=== PATIENT | female | born 1950 | race Caucasian/White ===

== ENCOUNTER 2022-05-11 13:14 | Inpatient (IN) | payer MEDICARE ==
[~2022-05-11] VITALS: Ht 152.4 cm; Wt 80.5 kg
[2022-05-11 20:00] VITALS: BP 137/71
[2022-05-11 20:50] VITALS: BP 137/71
[2022-05-11] MEDS ORDERED: DEXTROSE 50% 50ML SYRINGE IV PRN (22:05)
[2022-05-11] MEDS ORDERED: NS 1,000 ML IV SCH (22:05)
[2022-05-11] MEDS ORDERED: GLUCAGON INJ 1MG VIAL SC PRN (22:05)
[2022-05-11] MEDS ORDERED: GLUCOSE 4GM CHEW TABLET PO PRN (22:05)
[2022-05-11] MEDS ORDERED: AMLO1TAB25 PO (22:53)
[2022-05-11] MEDS ORDERED: PRED20TA PO (22:53)
[2022-05-11] MEDS ORDERED: THERTAB52 PO (22:53)
[2022-05-11] MEDS ORDERED: ROSU40TA4 PO (22:53)
[2022-05-11] MEDS ORDERED: ASPI81TA26 PO (22:53)
[2022-05-11] MEDS ORDERED: TIMO0.5S29 OU (22:53)
[2022-05-11] MEDS ORDERED: D-50CAP PO (22:53)
[2022-05-11] MEDS ORDERED: VORI200T PO (22:53)
[2022-05-11] MEDS ORDERED: METF500T13 PO (22:53)
[2022-05-11] MEDS ORDERED: FURO20TA2 PO (22:53)
[2022-05-11] MEDS ORDERED: LISI5TAB11 PO (22:53)
[2022-05-11] MEDS ORDERED: CARV6.25 PO (22:53)
[2022-05-11] MEDS ORDERED: HOME MED LIST COMPLETE! XX SCH (22:55)
[2022-05-11] MEDS: PERCOCET 5MG/325MG TAB PO PRN (23:38)
[2022-05-12] VITALS (7 sets, daily range): BP systolic 123–133; BP diastolic 58–74
[2022-05-12] MEDS ORDERED: UNRESOLVED CLARIFICATION ENTRY XX SCH (00:01)
[2022-05-12 00:23] LABS: OSMOLALITY URINE 426 MOSM/KG (50-1400)
[2022-05-12 00:25] LABS: APPEARANCE, URINE HAZY (CLEAR); BACTERIA, URINE AUTO 1+ (NEGATIVE); BILIRUBIN, URINE AUTO NEGATIVE (NEGATIVE); BLOOD, URINE BLOOD 1+ (NEGATIVE); COLOR, URINE YELLOW (YELLOW); GLUCOSE, URINE (UA) AUTO NEGATIVE (NEGATIVE); KETONE, URINE AUTO NEGATIVE (NEGATIVE); LEUKOCYTE ESTERASE, URINE AUTO NEGATIVE (NEGATIVE); MUCUS, URINE SMALL (NEGATIVE); NITRITE, URINE AUTO NEGATIVE (NEGATIVE); PROTEIN, URINE AUTO 2+ mg/dL (NEGATIVE); RBC, URINE AUTO 2 /HPF (0-3); SPECIFIC GRAVITY URINE AUTO 1.012 (1.002-1.035); SQUAMOUS EPITHELIAL CELL UR AU 1 /HPF (0-6); UROBILINOGEN, URINE AUTO 0.2 mg/dL (0.0-2.0); WBC, URINE AUTO 5 /HPF (0-3)
[2022-05-12 00:31] LABS: SODIUM,RANDOM URINE 108 MMOL/L
[2022-05-12 00:48] LABS: TOTAL PROTEIN,RANDOM URINE 134.9 MG/DL (0.0-14.0)
[2022-05-12 01:33] LABS: HEMATOCRIT 25.9 % (36.0-47.0); HEMOGLOBIN 8.4 g/dl (12.0-15.5); MEAN CORPUSCULAR HEMOGLOBIN 31.2 pg (27.0-33.0); MEAN CORPUSCULAR HGB CONC 32.4 g/dl (32.0-36.5); MEAN CORPUSCULAR VOLUME 96.3 fl (80.0-96.0); PLATELET COUNT, AUTOMATED 292 10^3/uL (150-450); RED BLOOD COUNT 2.69 10^6/uL (4.00-5.40)
[2022-05-12 01:56] LABS: CALCIUM LEVEL 8.5 MG/DL (8.3-10.6); CREATININE FOR GFR 1.42 MG/DL (0.55-1.30); GLOMERULAR FILTRATION RATE 38.8 (>39); POTASSIUM SERUM 3.6 MMOL/L (3.5-5.1)
[2022-05-12] MEDS: PIPERACILLIN/TAZOBACTAM SOD 3.375 GM in D5W MINI-BAG PLUS 50 ML IV SCH ×4 (02:07→17:10)
[2022-05-12] MEDS: CARVedilol 6.25 MG TAB PO SCH ×3 (02:08→20:33)
[2022-05-12 02:32] LABS: INR 1.02; PROTHROMBIN TIME 13.6 SECONDS (12.5-14.5)
[2022-05-12 02:33] LABS: PARTIAL THROMBOPLASTIN TIME 29.5 SECONDS (24.8-34.2)
[2022-05-12] MEDS: TIMOLOL MALEATE 0.5% OPHTH SOLN 5 ML OU SCH ×3 (02:46→20:23)
[2022-05-12] MEDS: VORICONAZOLE 200MG TABLET (VFEND) PO SCH ×3 (02:47→20:23)
[2022-05-12] MEDS ORDERED: VANCOMYCIN HCL 750 MG, VIAL MATE ADAPTER 1 EACH in D5W 250 ML IV ONE (03:00)
[2022-05-12] MEDS: ACETAMINOPHEN TAB 650MG DOSE (2X325MG) PO PRN (04:18)
[2022-05-12] MEDS: PERCOCET 5MG/325MG TAB PO PRN ×2 (05:48→20:34)
[2022-05-12 06:04] LABS: HEMATOCRIT 25.8 % (36.0-47.0); HEMOGLOBIN 8.2 g/dl (12.0-15.5); MEAN CORPUSCULAR HEMOGLOBIN 30.9 pg (27.0-33.0); MEAN CORPUSCULAR HGB CONC 31.8 g/dl (32.0-36.5); MEAN CORPUSCULAR VOLUME 97.4 fl (80.0-96.0); PLATELET COUNT, AUTOMATED 274 10^3/uL (150-450); RED BLOOD COUNT 2.65 10^6/uL (4.00-5.40); WHITE BLOOD COUNT 12.6 10^3/uL (4.0-10.0)
[2022-05-12 06:31] LABS: CALCIUM LEVEL 8.4 MG/DL (8.3-10.6); CREATININE FOR GFR 1.34 MG/DL (0.55-1.30); GLOMERULAR FILTRATION RATE 41.5 (>39); POTASSIUM SERUM 3.5 MMOL/L (3.5-5.1)
[2022-05-12] MEDS ORDERED: FUROSEMIDE 20 MG TAB PO SCH (09:00)
[2022-05-12] MEDS ORDERED: lisinopriL 5 MG TAB PO SCH (09:00)
[2022-05-12 09:28] LABS: HEMOGLOBIN A1c 6.1 % (4.0-6.0)
[2022-05-12] MEDS: ASPIRIN 81MG ENTERIC TABLET PO SCH (09:43)
[2022-05-12] MEDS: ROSUVASTATIN 10 MG TAB (CRESTOR) PO SCH (09:44)
[2022-05-12] MEDS: INSULIN LISPRO (NovoLOG) PER UNIT SC SCH ×4 (09:46→20:23)
[2022-05-12] MEDS: VANCOMYCIN HCL 1,000 MG, VIAL MATE ADAPTER 1 EACH in NS 250 ML IV SCH (20:23)
[2022-05-13] VITALS (9 sets, daily range): BP systolic 110–139; BP diastolic 52–59
[2022-05-13] MEDS: PIPERACILLIN/TAZOBACTAM SOD 3.375 GM in D5W MINI-BAG PLUS 50 ML IV SCH ×4 (00:02→18:23)
[2022-05-13] MEDS ORDERED: NS 0.45% 1,000 ML IV SCH (06:00)
[2022-05-13 06:04] LABS: HEMATOCRIT 25.2 % (36.0-47.0); HEMOGLOBIN 8.2 g/dl (12.0-15.5); MEAN CORPUSCULAR HEMOGLOBIN 31.3 pg (27.0-33.0); MEAN CORPUSCULAR HGB CONC 32.5 g/dl (32.0-36.5); MEAN CORPUSCULAR VOLUME 96.2 fl (80.0-96.0); PLATELET COUNT, AUTOMATED 290 10^3/uL (150-450); RED BLOOD COUNT 2.62 10^6/uL (4.00-5.40); WHITE BLOOD COUNT 14.6 10^3/uL (4.0-10.0)
[2022-05-13 06:36] LABS: C REACTIVE PROTEIN QUANTITATIV 4.6 MG/DL (<1.0)
[2022-05-13 06:37] LABS: CALCIUM LEVEL 8.4 MG/DL (8.3-10.6); CREATININE FOR GFR 1.37 MG/DL (0.55-1.30); GLOMERULAR FILTRATION RATE 40.5 (>39); POTASSIUM SERUM 3.5 MMOL/L (3.5-5.1)
[2022-05-13] MEDS ORDERED: fentaNYL 100 MCG/2 ML INJECTION As Ordered ONE ×2 (07:26→09:44)
[2022-05-13] MEDS ORDERED: ISOVUE-300 61% 100ML VIAL As Ordered ONE ×3 (07:27→09:57)
[2022-05-13] MEDS ORDERED: HEPARIN 1,000UNITS/ML 10ML VIAL (FOR RADIOLOGY & DIALYSIS ONLY) As Ordered ONE (07:27)
[2022-05-13] MEDS ORDERED: LIDOCAINE 1% MDV 20ML VIAL As Ordered ONE (07:27)
[2022-05-13] MEDS ORDERED: MIDAZOLAM INJ 2MG/2ML VIAL As Ordered ONE (07:27)
[2022-05-13] MEDS: INSULIN LISPRO (NovoLOG) PER UNIT SC SCH ×4 (07:30→21:00)
[2022-05-13] MEDS ORDERED: NITROGLYCERIN IN D5W 25MG/250ML (100MCG/ML) As Ordered ONE (09:35)
[2022-05-13] MEDS ORDERED: HYDROmorphone HCL 2MG/ML 1ML VIAL As Ordered ONE (09:59)
[2022-05-13] MEDS ORDERED: PAPAVERINE HCL 60MG 2ML VIAL (30MG/ML) INJ ONE (10:30)
[2022-05-13] MEDS ORDERED: PIPERACILLIN/TAZOBACTAM SOD 2.25 GM in D5W MINI-BAG PLUS 50 ML IV SCH (12:00)
[2022-05-13] MEDS: VORICONAZOLE 200MG TABLET (VFEND) PO SCH ×2 (12:48→21:47)
[2022-05-13] MEDS: ROSUVASTATIN 10 MG TAB (CRESTOR) PO SCH (12:48)
[2022-05-13] MEDS: CARVedilol 6.25 MG TAB PO SCH ×2 (12:49→21:46)
[2022-05-13] MEDS: TIMOLOL MALEATE 0.5% OPHTH SOLN 5 ML OU SCH ×2 (12:49→21:47)
[2022-05-13] MEDS: ASPIRIN 81MG ENTERIC TABLET PO SCH (13:07)
[2022-05-13] MEDS ORDERED: ONDANSETRON 4MG 2ML VIAL IV PRN (13:10)
[2022-05-13] MEDS ORDERED: TICAGRELOR 90 MG TABLET (BRILINTA) PO ONE (14:00)
[2022-05-13] MEDS: PERCOCET 5MG/325MG TAB PO PRN (19:54)
[2022-05-13] MEDS ORDERED: TICAGRELOR 90 MG TABLET (BRILINTA) PO SCH (21:00)
[2022-05-13] MEDS: VANCOMYCIN HCL 1,000 MG, VIAL MATE ADAPTER 1 EACH in NS 250 ML IV SCH (21:47)
[2022-05-13] MEDS: ACETAMINOPHEN TAB 650MG DOSE (2X325MG) PO PRN (22:47)
[2022-05-14] VITALS (11 sets, daily range): BP systolic 109–148; BP diastolic 37–60
[2022-05-14] MEDS: PIPERACILLIN/TAZOBACTAM SOD 3.375 GM in D5W MINI-BAG PLUS 50 ML IV SCH ×4 (00:40→17:20)
[2022-05-14 06:08] LABS: HEMATOCRIT 22.8 % (36.0-47.0); HEMOGLOBIN 7.5 g/dl (12.0-15.5); MEAN CORPUSCULAR HEMOGLOBIN 31.4 pg (27.0-33.0); MEAN CORPUSCULAR HGB CONC 32.9 g/dl (32.0-36.5); MEAN CORPUSCULAR VOLUME 95.4 fl (80.0-96.0); PLATELET COUNT, AUTOMATED 267 10^3/uL (150-450); RED BLOOD COUNT 2.39 10^6/uL (4.00-5.40); WHITE BLOOD COUNT 14.6 10^3/uL (4.0-10.0)
[2022-05-14 06:36] LABS: C REACTIVE PROTEIN QUANTITATIV 5.6 MG/DL (<1.0); CALCIUM LEVEL 8.2 MG/DL (8.3-10.6); CREATININE FOR GFR 1.31 MG/DL (0.55-1.30); GLOMERULAR FILTRATION RATE 42.6 (>39); POTASSIUM SERUM 3.1 MMOL/L (3.5-5.1)
[2022-05-14] MEDS: INSULIN LISPRO (NovoLOG) PER UNIT SC SCH ×4 (07:30→21:00)
[2022-05-14] MEDS: TIMOLOL MALEATE 0.5% OPHTH SOLN 5 ML OU SCH ×2 (08:03→21:20)
[2022-05-14] MEDS: POTASSIUM CHLORIDE 10MEQ SR TABLET PO SCH ×3 (08:04→21:18)
[2022-05-14] MEDS: ROSUVASTATIN 10 MG TAB (CRESTOR) PO SCH (08:05)
[2022-05-14] MEDS: CARVedilol 6.25 MG TAB PO SCH ×2 (08:05→21:17)
[2022-05-14] MEDS: PERCOCET 5MG/325MG TAB PO PRN ×2 (08:06→17:19)
[2022-05-14] MEDS: VORICONAZOLE 200MG TABLET (VFEND) PO SCH ×2 (08:07→21:18)
[2022-05-14] MEDS: ASPIRIN 81MG ENTERIC TABLET PO SCH (09:57)
[2022-05-14] MEDS ORDERED: SODIUM CHLORIDE NASAL 0.65% SPRAY BTL (OCEAN) PRN (11:30)
[2022-05-14] MEDS: CLOPIDOGREL 75 MG TAB PO SCH (12:04)
[2022-05-14] MEDS ORDERED: LIDOCAINE 2% 100MG/5ML SDV (FOR ANES.) As Ordered ONE (12:09)
[2022-05-14] MEDS ORDERED: ONDANSETRON 4MG 2ML VIAL As Ordered ONE (12:09)
[2022-05-14] MEDS ORDERED: fentaNYL 100 MCG/2 ML INJECTION As Ordered ONE (12:09)
[2022-05-14] MEDS ORDERED: propofoL 200 MG/20 ML VIAL As Ordered ONE (12:09)
[2022-05-14] MEDS ORDERED: MIDAZOLAM INJ 2MG/2ML VIAL As Ordered ONE (12:09)
[2022-05-14] MEDS ORDERED: BUPIVACAINE HCL 0.5% 30ML VIAL As Ordered ONE (12:39)
[2022-05-14] MEDS ORDERED: LIDOCAINE 1% SDV 30ML VIAL As Ordered ONE (12:39)
[2022-05-14] MEDS ORDERED: ZOSYN 3.375GM VIAL As Ordered ONE (12:59)
[2022-05-14] MEDS ORDERED: fentaNYL 100 MCG/2 ML INJECTION IV PRN (13:35)
[2022-05-14] MEDS ORDERED: ONDANSETRON 4MG 2ML VIAL IV PRN (13:35)
[2022-05-14] MEDS ORDERED: LR 1,000 ML IV SCH (13:35)
[2022-05-14] MEDS ORDERED: oxyCODONE 5MG TAB PO PRN (13:35)
[2022-05-14] MEDS ORDERED: MORPHINE 2 MG/ML 1ML VIAL IV ONE (17:15)
[2022-05-14] MEDS ORDERED: MORPHINE 2 MG/ML 1ML VIAL IV PRN ×2 (17:30→18:00)
[2022-05-14 18:08] LABS: HEMATOCRIT 23.7 % (36.0-47.0); HEMOGLOBIN 7.6 g/dl (12.0-15.5)
[2022-05-14] MEDS: ACETAMINOPHEN TAB 650MG DOSE (2X325MG) PO PRN (18:21)
[2022-05-14] MEDS ORDERED: TICAGRELOR 90 MG TABLET (BRILINTA) PO SCH (21:00)
[2022-05-14] MEDS ORDERED: CLOPIDOGREL 75 MG TAB PO SCH (21:00)
[2022-05-14] MEDS: VANCOMYCIN HCL 1,000 MG, VIAL MATE ADAPTER 1 EACH in NS 250 ML IV SCH (21:18)
[2022-05-15] MEDS: PIPERACILLIN/TAZOBACTAM SOD 3.375 GM in D5W MINI-BAG PLUS 50 ML IV SCH ×2 (00:11→05:51)
[2022-05-15] MEDS: ACETAMINOPHEN TAB 650MG DOSE (2X325MG) PO PRN (00:30)
[2022-05-15 02:10] VITALS: BP 122/48
[2022-05-15 06:00] VITALS: BP 122/52
[2022-05-15 06:35] LABS: HEMATOCRIT 22.3 % (36.0-47.0); HEMOGLOBIN 7.1 g/dl (12.0-15.5); MEAN CORPUSCULAR HEMOGLOBIN 31.3 pg (27.0-33.0); MEAN CORPUSCULAR HGB CONC 31.8 g/dl (32.0-36.5); MEAN CORPUSCULAR VOLUME 98.2 fl (80.0-96.0); PLATELET COUNT, AUTOMATED 276 10^3/uL (150-450); RED BLOOD COUNT 2.27 10^6/uL (4.00-5.40); WHITE BLOOD COUNT 13.3 10^3/uL (4.0-10.0)
[2022-05-15] MEDS: PERCOCET 5MG/325MG TAB PO PRN ×2 (06:55→12:35)
[2022-05-15 07:00] LABS: C REACTIVE PROTEIN QUANTITATIV 6.9 MG/DL (<1.0); CALCIUM LEVEL 8.4 MG/DL (8.3-10.6); CREATININE FOR GFR 1.35 MG/DL (0.55-1.30); GLOMERULAR FILTRATION RATE 41.2 (>39); POTASSIUM SERUM 4.1 MMOL/L (3.5-5.1)
[2022-05-15 08:00] VITALS: BP 125/51
[2022-05-15] MEDS ORDERED: CEFEPIME HCL 2 GM in D5W MINI-BAG PLUS 50 ML IV SCH (08:00)
[2022-05-15] MEDS: VORICONAZOLE 200MG TABLET (VFEND) PO SCH (09:41)
[2022-05-15] MEDS: CLOPIDOGREL 75 MG TAB PO SCH (09:41)
[2022-05-15 09:42] VITALS: BP 125/51
[2022-05-15] MEDS: CARVedilol 6.25 MG TAB PO SCH (09:43)
[2022-05-15] MEDS: ASPIRIN 81MG ENTERIC TABLET PO SCH (09:43)
[2022-05-15] MEDS: ROSUVASTATIN 10 MG TAB (CRESTOR) PO SCH (09:43)
[2022-05-15] MEDS: TIMOLOL MALEATE 0.5% OPHTH SOLN 5 ML OU SCH (09:45)
[2022-05-15] MEDS: INSULIN LISPRO (NovoLOG) PER UNIT SC SCH ×2 (09:45→14:14)
[2022-05-15 14:00] VITALS: BP 125/51
[2022-05-15] MEDS ORDERED: HEPARIN SOD (PORCINE) 5000UNITS/ML 1ML VIAL/SYRINGE SQ SCH (14:00)
[2022-05-15 16:09] LABS: CLOSTRIDIUM DIFFICILE PCR NEGATIVE (NEGATIVE)
== END 2022-05-15 16:21 | DRG 252 ==
LOC: M PCU 20:30 → M MSPAV 05-12 21:52
PROVIDERS: ADMIT Internal Medicine; ATTEND Student in an Organized Health Care Education/Training Program
PROC: B246ZZZ Ultrasonography of Right and Left Heart (ICD-10-PCS; 2022-05-12)
PROC: 047T341 Dilation of Right Peroneal Artery with Drug-eluting Intraluminal Device, using Drug-Coated Balloon, Percutaneous Approach (ICD-10-PCS; 2022-05-13)
PROC: 04FP3Z0 Fragmentation of Right Anterior Tibial Artery, Percutaneous Approach, Ultrasonic (ICD-10-PCS; 2022-05-13)
PROC: 04FM3Z0 Fragmentation of Right Popliteal Artery, Percutaneous Approach, Ultrasonic (ICD-10-PCS; 2022-05-13)
PROC: 04FK3Z0 Fragmentation of Right Femoral Artery, Percutaneous Approach, Ultrasonic (ICD-10-PCS; 2022-05-13)
PROC: 047M3ZZ Dilation of Right Popliteal Artery, Percutaneous Approach (ICD-10-PCS; 2022-05-13)
PROC: 047K341 Dilation of Right Femoral Artery with Drug-eluting Intraluminal Device, using Drug-Coated Balloon, Percutaneous Approach (ICD-10-PCS; principal; 2022-05-13 08:00)
PROC: 0Y6P0Z0 Detachment at Right 1st Toe, Complete, Open Approach (ICD-10-PCS; 2022-05-14)
DX: E11.52 Type 2 diabetes mellitus with diabetic peripheral angiopathy with gangrene (principal); J98.51 Mediastinitis; M86.171 Other acute osteomyelitis, right ankle and foot; I70.261 Atherosclerosis of native arteries of extremities with gangrene, right leg; K52.1 Toxic gastroenteritis and colitis; B49 Unspecified mycosis; L97.518 Non-pressure chronic ulcer of other part of right foot with other specified severity; E11.69 Type 2 diabetes mellitus with other specified complication; I12.9 Hypertensive chronic kidney disease with stage 1 through stage 4 chronic kidney disease, or unspecified chronic kidney disease; I70.235 Atherosclerosis of native arteries of right leg with ulceration of other part of foot; E11.621 Type 2 diabetes mellitus with foot ulcer; E78.5 Hyperlipidemia, unspecified; E11.22 Type 2 diabetes mellitus with diabetic chronic kidney disease; E87.6 Hypokalemia; N18.9 Chronic kidney disease, unspecified; R04.0 Epistaxis; I25.10 Atherosclerotic heart disease of native coronary artery without angina pectoris; H40.9 Unspecified glaucoma; T36.95XA Adverse effect of unspecified systemic antibiotic, initial encounter; Z79.82 Long term (current) use of aspirin; Z79.84 Long term (current) use of oral hypoglycemic drugs; Z79.899 Other long term (current) drug therapy; Z88.1 Allergy status to other antibiotic agents; Z98.41 Cataract extraction status, right eye; Z98.42 Cataract extraction status, left eye; Z85.3 Personal history of malignant neoplasm of breast; Z92.3 Personal history of irradiation; Z87.891 Personal history of nicotine dependence; Z95.1 Presence of aortocoronary bypass graft

== ENCOUNTER 2022-05-15 15:58 | Inpatient (IN) | payer MEDICARE ==
[~2022-05-15] VITALS: Ht 152.4 cm; Wt 73.2 kg
[~2022-05-15 15:58] MED LIST: AMLO1TAB25 PO; ASPI81TA26 PO; CARV6.25 PO; D-50CAP PO; FURO20TA2 PO; LISI5TAB11 PO; METF500T13 PO; PRED20TA PO; ROSU40TA4 PO; THERTAB52 PO; TIMO0.5S20 OU; VORI200T PO
[2022-05-15 16:00] VITALS: BP 134/62
[2022-05-15] MEDS ORDERED: MIRALAX *UNIT DOSE* 17GM PACKET PO PRN (16:55)
[2022-05-15] MEDS ORDERED: ONDANSETRON 4MG TAB PO PRN (16:55)
[2022-05-15] MEDS ORDERED: GLUCOSE 4GM CHEW TABLET PO PRN (16:55)
[2022-05-15] MEDS ORDERED: GLUCAGON INJ 1MG VIAL SC PRN (16:55)
[2022-05-15] MEDS ORDERED: DEXTROSE 50% 50ML SYRINGE IV PRN (16:55)
[2022-05-15] MEDS: INSULIN LISPRO (NovoLOG) PER UNIT SC SCH ×2 (17:30→21:00)
[2022-05-15] MEDS ORDERED: HOME MED LIST COMPLETE! XX SCH (17:35)
[2022-05-15] MEDS: LACTOBACILLUS ACIDOPHILUS CAP (BACID) PO SCH (18:51)
[2022-05-15] MEDS: oxyCODONE 5MG TAB PO PRN (18:54)
[2022-05-15] MEDS: CEFEPIME HCL 2 GM in D5W MINI-BAG PLUS 50 ML IV SCH (19:57)
[2022-05-15 20:00] VITALS: BP 141/65
[2022-05-15] MEDS: ACETAMINOPHEN 500 MG TAB PO SCH (20:52)
[2022-05-15] MEDS: PANTOPRAZOLE 40MG TAB (PROTONIX) PO SCH (20:52)
[2022-05-15] MEDS: VORICONAZOLE 200MG TABLET (VFEND) PO SCH (20:52)
[2022-05-15] MEDS: CARVedilol 6.25 MG TAB PO SCH (20:52)
[2022-05-15] MEDS: REMEDY PHYTOPLEX Z-GUARD PASTE 113GM TUBE (FROM STOREROOM PRODUCT) TOP SCH (20:56)
[2022-05-15] MEDS ORDERED: VANCOMYCIN HCL 1,000 MG, VIAL MATE ADAPTER 1 EACH in D5W 250 ML IV SCH (21:00)
[2022-05-15] MEDS: TIMOLOL MALEATE 0.5% OPHTH SOLN 5 ML OU SCH (21:01)
[2022-05-16] VITALS (7 sets, daily range): BP systolic 117–161; BP diastolic 56–72
[2022-05-16 06:45] LABS: BASO # 0.1 10^3/uL (0.0-0.2); BASO % 0.4 % (0.0-1.0); EOS # 0.2 10^3/uL (0.0-0.5); EOS % 1.1 % (0.0-3.0); HEMATOCRIT 21.8 % (36.0-47.0); LYMPH # 1.3 10^3/uL (1.5-5.0); LYMPH % 8.2 % (24.0-44.0); MEAN CORPUSCULAR HEMOGLOBIN 31.3 pg (27.0-33.0); MEAN CORPUSCULAR HGB CONC 32.1 g/dl (32.0-36.5); MEAN CORPUSCULAR VOLUME 97.3 fl (80.0-96.0); MONO # 0.9 10^3/uL (0.0-0.8); MONO % 5.8 % (2.0-8.0); NEUTROPHILS # 12.8 10^3/uL (1.5-8.5); NEUTROPHILS % 83.8 % (36.0-66.0); PLATELET COUNT, AUTOMATED 284 10^3/uL (150-450); RED BLOOD COUNT 2.24 10^6/uL (4.00-5.40); WHITE BLOOD COUNT 15.3 10^3/uL (4.0-10.0)
[2022-05-16 07:10] LABS: ALBUMIN 2.5 G/DL (3.2-5.2); BILIRUBIN,TOTAL 0.5 MG/DL (0.3-1.2); CALCIUM LEVEL 8.5 MG/DL (8.3-10.6); CREATININE FOR GFR 1.42 MG/DL (0.55-1.30); GLOMERULAR FILTRATION RATE 38.8 (>39); POTASSIUM SERUM 3.7 MMOL/L (3.5-5.1); TOTAL PROTEIN 6.3 G/DL (5.7-8.2)
[2022-05-16] MEDS: REMEDY PHYTOPLEX Z-GUARD PASTE 113GM TUBE (FROM STOREROOM PRODUCT) TOP SCH ×3 (09:00→20:21)
[2022-05-16] MEDS: CEFEPIME HCL 2 GM in D5W MINI-BAG PLUS 50 ML IV SCH (09:23)
[2022-05-16] MEDS: ASPIRIN 81MG ENTERIC TABLET PO SCH (09:24)
[2022-05-16] MEDS: CLOPIDOGREL 75 MG TAB PO SCH (09:24)
[2022-05-16] MEDS: PANTOPRAZOLE 40MG TAB (PROTONIX) PO SCH ×2 (09:24→20:20)
[2022-05-16] MEDS: LACTOBACILLUS ACIDOPHILUS CAP (BACID) PO SCH ×2 (09:24→17:47)
[2022-05-16] MEDS: ROSUVASTATIN 10 MG TAB (CRESTOR) PO SCH (09:24)
[2022-05-16] MEDS: ACETAMINOPHEN 500 MG TAB PO SCH ×3 (09:25→20:19)
[2022-05-16] MEDS: VORICONAZOLE 200MG TABLET (VFEND) PO SCH ×2 (09:25→20:19)
[2022-05-16] MEDS: CARVedilol 6.25 MG TAB PO SCH ×2 (09:26→20:20)
[2022-05-16] MEDS: TIMOLOL MALEATE 0.5% OPHTH SOLN 5 ML OU SCH ×2 (09:27→20:21)
[2022-05-16] MEDS: INSULIN LISPRO (NovoLOG) PER UNIT SC SCH ×4 (09:27→20:20)
[2022-05-16] MEDS: POTASSIUM CHLORIDE 10MEQ SR TABLET PO SCH (09:29)
[2022-05-16] MEDS ORDERED: LOPERAMIDE 2 MG CAPLET PO PRN (10:55)
[2022-05-16] MEDS: oxyCODONE 5MG TAB PO PRN (12:26)
[2022-05-16] MEDS: FUROSEMIDE 20 MG TAB PO SCH (13:27)
[2022-05-16] MEDS: PIPERACILLIN/TAZOBACTAM SOD 3.375 GM in D5W MINI-BAG PLUS 50 ML IV SCH ×2 (17:48→20:19)
[2022-05-16 19:59] LABS: BASO % 0.2 % (0.0-1.0); EOS # 0.2 10^3/uL (0.0-0.5); EOS % 1.4 % (0.0-3.0); HEMATOCRIT 24.6 % (36.0-47.0); HEMOGLOBIN 8.3 g/dl (12.0-15.5); LYMPH # 1.3 10^3/uL (1.5-5.0); LYMPH % 10.1 % (24.0-44.0); MEAN CORPUSCULAR HEMOGLOBIN 31.8 pg (27.0-33.0); MEAN CORPUSCULAR HGB CONC 33.7 g/dl (32.0-36.5); MEAN CORPUSCULAR VOLUME 94.3 fl (80.0-96.0); MONO # 0.9 10^3/uL (0.0-0.8); MONO % 7.3 % (2.0-8.0); NEUTROPHILS # 10.1 10^3/uL (1.5-8.5); NEUTROPHILS % 80.3 % (36.0-66.0); PLATELET COUNT, AUTOMATED 272 10^3/uL (150-450); RED BLOOD COUNT 2.61 10^6/uL (4.00-5.40); WHITE BLOOD COUNT 12.6 10^3/uL (4.0-10.0)
[2022-05-17] MEDS: PIPERACILLIN/TAZOBACTAM SOD 3.375 GM in D5W MINI-BAG PLUS 50 ML IV SCH ×4 (02:06→21:22)
[2022-05-17 06:00] VITALS: BP 128/59
[2022-05-17 07:01] LABS: BASO # 0.1 10^3/uL (0.0-0.2); BASO % 0.4 % (0.0-1.0); EOS # 0.2 10^3/uL (0.0-0.5); EOS % 1.8 % (0.0-3.0); HEMATOCRIT 24.1 % (36.0-47.0); HEMOGLOBIN 7.8 g/dl (12.0-15.5); LYMPH # 1.3 10^3/uL (1.5-5.0); LYMPH % 11.3 % (24.0-44.0); MEAN CORPUSCULAR HEMOGLOBIN 30.6 pg (27.0-33.0); MEAN CORPUSCULAR HGB CONC 32.4 g/dl (32.0-36.5); MEAN CORPUSCULAR VOLUME 94.5 fl (80.0-96.0); MONO # 0.9 10^3/uL (0.0-0.8); MONO % 7.9 % (2.0-8.0); NEUTROPHILS % 77.8 % (36.0-66.0); PLATELET COUNT, AUTOMATED 266 10^3/uL (150-450); RED BLOOD COUNT 2.55 10^6/uL (4.00-5.40); WHITE BLOOD COUNT 11.6 10^3/uL (4.0-10.0)
[2022-05-17] MEDS: INSULIN LISPRO (NovoLOG) PER UNIT SC SCH ×4 (08:11→21:00)
[2022-05-17] MEDS: ROSUVASTATIN 10 MG TAB (CRESTOR) PO SCH (08:12)
[2022-05-17] MEDS: ASPIRIN 81MG ENTERIC TABLET PO SCH (08:12)
[2022-05-17] MEDS: ACETAMINOPHEN 500 MG TAB PO SCH ×3 (08:13→21:22)
[2022-05-17] MEDS: POTASSIUM CHLORIDE 10MEQ SR TABLET PO SCH (08:13)
[2022-05-17] MEDS: LACTOBACILLUS ACIDOPHILUS CAP (BACID) PO SCH ×2 (08:14→17:01)
[2022-05-17] MEDS: PANTOPRAZOLE 40MG TAB (PROTONIX) PO SCH ×2 (08:14→21:21)
[2022-05-17] MEDS: VORICONAZOLE 200MG TABLET (VFEND) PO SCH ×2 (08:14→21:22)
[2022-05-17] MEDS: CARVedilol 6.25 MG TAB PO SCH ×2 (08:14→21:21)
[2022-05-17] MEDS: CLOPIDOGREL 75 MG TAB PO SCH (08:14)
[2022-05-17] MEDS: FUROSEMIDE 20 MG TAB PO SCH (08:14)
[2022-05-17] MEDS: REMEDY PHYTOPLEX Z-GUARD PASTE 113GM TUBE (FROM STOREROOM PRODUCT) TOP SCH ×3 (08:15→21:00)
[2022-05-17] MEDS: TIMOLOL MALEATE 0.5% OPHTH SOLN 5 ML OU SCH ×2 (08:15→21:24)
[2022-05-17 14:00] VITALS: BP 129/63
[2022-05-17] MEDS: oxyCODONE 5MG TAB PO PRN (17:39)
[2022-05-17 19:37] VITALS: BP 161/70
[2022-05-18] MEDS: PIPERACILLIN/TAZOBACTAM SOD 3.375 GM in D5W MINI-BAG PLUS 50 ML IV SCH ×4 (03:09→21:10)
[2022-05-18 05:52] VITALS: BP 138/60
[2022-05-18] MEDS: oxyCODONE 5MG TAB PO PRN ×2 (06:15→21:17)
[2022-05-18] MEDS: CLOPIDOGREL 75 MG TAB PO SCH (08:53)
[2022-05-18] MEDS: ROSUVASTATIN 10 MG TAB (CRESTOR) PO SCH (08:54)
[2022-05-18] MEDS: PANTOPRAZOLE 40MG TAB (PROTONIX) PO SCH ×2 (08:54→21:16)
[2022-05-18] MEDS: LACTOBACILLUS ACIDOPHILUS CAP (BACID) PO SCH ×2 (08:54→17:39)
[2022-05-18] MEDS: INSULIN LISPRO (NovoLOG) PER UNIT SC SCH ×4 (08:54→21:00)
[2022-05-18] MEDS: ASPIRIN 81MG ENTERIC TABLET PO SCH (08:54)
[2022-05-18] MEDS: POTASSIUM CHLORIDE 10MEQ SR TABLET PO SCH (08:55)
[2022-05-18] MEDS: VORICONAZOLE 200MG TABLET (VFEND) PO SCH ×2 (08:55→21:17)
[2022-05-18] MEDS: FUROSEMIDE 20 MG TAB PO SCH (08:56)
[2022-05-18] MEDS: CARVedilol 6.25 MG TAB PO SCH ×2 (08:57→21:00)
[2022-05-18] MEDS: REMEDY PHYTOPLEX Z-GUARD PASTE 113GM TUBE (FROM STOREROOM PRODUCT) TOP SCH ×3 (09:00→21:00)
[2022-05-18] MEDS: ACETAMINOPHEN 500 MG TAB PO SCH ×3 (09:00→21:16)
[2022-05-18] MEDS: TIMOLOL MALEATE 0.5% OPHTH SOLN 5 ML OU SCH ×2 (09:01→21:18)
[2022-05-18] MEDS: SUCRALFATE 1 GM TAB PO SCH ×3 (12:00→21:17)
[2022-05-18 14:00] VITALS: BP 142/65
[2022-05-18 20:00] VITALS: BP 144/65
[2022-05-19] MEDS: PIPERACILLIN/TAZOBACTAM SOD 3.375 GM in D5W MINI-BAG PLUS 50 ML IV SCH ×4 (02:53→21:29)
[2022-05-19 06:00] VITALS: BP 129/59
[2022-05-19] MEDS: INSULIN LISPRO (NovoLOG) PER UNIT SC SCH ×4 (08:15→20:57)
[2022-05-19] MEDS: REMEDY PHYTOPLEX Z-GUARD PASTE 113GM TUBE (FROM STOREROOM PRODUCT) TOP SCH ×3 (09:00→21:00)
[2022-05-19] MEDS: LACTOBACILLUS ACIDOPHILUS CAP (BACID) PO SCH ×2 (09:39→17:13)
[2022-05-19] MEDS: PANTOPRAZOLE 40MG TAB (PROTONIX) PO SCH ×2 (09:39→21:28)
[2022-05-19] MEDS: VORICONAZOLE 200MG TABLET (VFEND) PO SCH ×2 (09:39→21:28)
[2022-05-19] MEDS: CLOPIDOGREL 75 MG TAB PO SCH (09:40)
[2022-05-19] MEDS: ASPIRIN 81MG ENTERIC TABLET PO SCH (09:40)
[2022-05-19] MEDS: ROSUVASTATIN 10 MG TAB (CRESTOR) PO SCH (09:40)
[2022-05-19] MEDS: POTASSIUM CHLORIDE 10MEQ SR TABLET PO SCH (09:40)
[2022-05-19] MEDS: ACETAMINOPHEN 500 MG TAB PO SCH ×3 (09:41→21:28)
[2022-05-19] MEDS: CARVedilol 6.25 MG TAB PO SCH ×2 (09:42→21:28)
[2022-05-19] MEDS: FUROSEMIDE 20 MG TAB PO SCH (09:42)
[2022-05-19] MEDS: TIMOLOL MALEATE 0.5% OPHTH SOLN 5 ML OU SCH ×2 (09:43→21:29)
[2022-05-19] MEDS: SUCRALFATE 1 GM TAB PO SCH ×4 (09:49→21:27)
[2022-05-19 11:14] LABS: BASO # 0.1 10^3/uL (0.0-0.2); BASO % 0.4 % (0.0-1.0); EOS # 0.2 10^3/uL (0.0-0.5); EOS % 1.5 % (0.0-3.0); HEMATOCRIT 28.7 % (36.0-47.0); HEMOGLOBIN 9.3 g/dl (12.0-15.5); LYMPH # 1.6 10^3/uL (1.5-5.0); LYMPH % 13.8 % (24.0-44.0); MEAN CORPUSCULAR HEMOGLOBIN 30.8 pg (27.0-33.0); MEAN CORPUSCULAR HGB CONC 32.4 g/dl (32.0-36.5); MONO # 0.6 10^3/uL (0.0-0.8); MONO % 5.4 % (2.0-8.0); NEUTROPHILS # 9.2 10^3/uL (1.5-8.5); NEUTROPHILS % 78.5 % (36.0-66.0); PLATELET COUNT, AUTOMATED 359 10^3/uL (150-450); RED BLOOD COUNT 3.02 10^6/uL (4.00-5.40); WHITE BLOOD COUNT 11.7 10^3/uL (4.0-10.0)
[2022-05-19 11:47] LABS: CALCIUM LEVEL 8.2 MG/DL (8.3-10.6); CREATININE FOR GFR 1.38 MG/DL (0.55-1.30); GLOMERULAR FILTRATION RATE 40.1 (>39); POTASSIUM SERUM 3.8 MMOL/L (3.5-5.1)
[2022-05-19 14:00] VITALS: BP 130/61
[2022-05-19] MEDS ORDERED: LIDOCAINE 1% MDV 20ML VIAL As Ordered ONE (14:28)
[2022-05-19] MEDS: SODIUM CHLORIDE 0.9% INJ 10 ML SYR IV SCH (18:48)
[2022-05-19 20:00] VITALS: BP 142/65
[2022-05-19] MEDS: oxyCODONE 5MG TAB PO PRN (22:40)
[2022-05-20] MEDS: PIPERACILLIN/TAZOBACTAM SOD 3.375 GM in D5W MINI-BAG PLUS 50 ML IV SCH ×4 (03:15→20:58)
[2022-05-20] MEDS: SODIUM CHLORIDE 0.9% INJ 10 ML SYR IV SCH ×2 (04:38→17:58)
[2022-05-20 06:00] VITALS: BP 135/65
[2022-05-20] MEDS: SUCRALFATE 1 GM TAB PO SCH ×4 (08:32→21:00)
[2022-05-20] MEDS: LACTOBACILLUS ACIDOPHILUS CAP (BACID) PO SCH ×2 (08:32→18:19)
[2022-05-20] MEDS: CLOPIDOGREL 75 MG TAB PO SCH (08:32)
[2022-05-20] MEDS: ROSUVASTATIN 10 MG TAB (CRESTOR) PO SCH (08:32)
[2022-05-20] MEDS: VORICONAZOLE 200MG TABLET (VFEND) PO SCH ×2 (08:32→21:00)
[2022-05-20] MEDS: PANTOPRAZOLE 40MG TAB (PROTONIX) PO SCH ×2 (08:32→21:00)
[2022-05-20] MEDS: ASPIRIN 81MG ENTERIC TABLET PO SCH (08:32)
[2022-05-20] MEDS: INSULIN LISPRO (NovoLOG) PER UNIT SC SCH ×4 (08:33→21:00)
[2022-05-20] MEDS: POTASSIUM CHLORIDE 10MEQ SR TABLET PO SCH (08:33)
[2022-05-20] MEDS: CARVedilol 6.25 MG TAB PO SCH ×2 (08:33→21:00)
[2022-05-20] MEDS: ACETAMINOPHEN 500 MG TAB PO SCH ×3 (08:34→21:00)
[2022-05-20] MEDS: FUROSEMIDE 20 MG TAB PO SCH (08:34)
[2022-05-20] MEDS: REMEDY PHYTOPLEX Z-GUARD PASTE 113GM TUBE (FROM STOREROOM PRODUCT) TOP SCH ×3 (08:35→21:00)
[2022-05-20] MEDS: TIMOLOL MALEATE 0.5% OPHTH SOLN 5 ML OU SCH ×2 (08:35→21:01)
[2022-05-20 14:00] VITALS: BP 141/66
[2022-05-20 20:00] VITALS: BP 140/61
[2022-05-20] MEDS: oxyCODONE 5MG TAB PO PRN (22:16)
[2022-05-21] MEDS: PIPERACILLIN/TAZOBACTAM SOD 3.375 GM in D5W MINI-BAG PLUS 50 ML IV SCH ×4 (03:12→21:20)
[2022-05-21] MEDS: SODIUM CHLORIDE 0.9% INJ 10 ML SYR IV SCH ×2 (04:47→18:16)
[2022-05-21 06:00] VITALS: BP 130/62
[2022-05-21] MEDS: ROSUVASTATIN 10 MG TAB (CRESTOR) PO SCH (08:13)
[2022-05-21] MEDS: CLOPIDOGREL 75 MG TAB PO SCH (08:13)
[2022-05-21] MEDS: CARVedilol 6.25 MG TAB PO SCH ×2 (08:14→21:23)
[2022-05-21] MEDS: FUROSEMIDE 20 MG TAB PO SCH (08:14)
[2022-05-21] MEDS: PANTOPRAZOLE 40MG TAB (PROTONIX) PO SCH ×2 (08:15→21:23)
[2022-05-21] MEDS: POTASSIUM CHLORIDE 10MEQ SR TABLET PO SCH (08:15)
[2022-05-21] MEDS: ASPIRIN 81MG ENTERIC TABLET PO SCH (08:15)
[2022-05-21] MEDS: SUCRALFATE 1 GM TAB PO SCH ×4 (08:15→21:24)
[2022-05-21] MEDS: ACETAMINOPHEN 500 MG TAB PO SCH ×3 (08:17→21:24)
[2022-05-21] MEDS: VORICONAZOLE 200MG TABLET (VFEND) PO SCH ×2 (08:17→21:24)
[2022-05-21] MEDS: INSULIN LISPRO (NovoLOG) PER UNIT SC SCH ×4 (08:18→21:00)
[2022-05-21] MEDS: LACTOBACILLUS ACIDOPHILUS CAP (BACID) PO SCH ×2 (08:22→18:14)
[2022-05-21] MEDS: TIMOLOL MALEATE 0.5% OPHTH SOLN 5 ML OU SCH ×2 (08:23→21:25)
[2022-05-21] MEDS: REMEDY PHYTOPLEX Z-GUARD PASTE 113GM TUBE (FROM STOREROOM PRODUCT) TOP SCH ×3 (08:24→21:00)
[2022-05-21 11:09] LABS: BASO % 0.3 % (0.0-1.0); EOS # 0.1 10^3/uL (0.0-0.5); EOS % 1.4 % (0.0-3.0); HEMATOCRIT 26.8 % (36.0-47.0); HEMOGLOBIN 8.4 g/dl (12.0-15.5); LYMPH # 1.7 10^3/uL (1.5-5.0); LYMPH % 20.2 % (24.0-44.0); MEAN CORPUSCULAR HEMOGLOBIN 30.5 pg (27.0-33.0); MEAN CORPUSCULAR HGB CONC 31.3 g/dl (32.0-36.5); MEAN CORPUSCULAR VOLUME 97.5 fl (80.0-96.0); MONO # 0.6 10^3/uL (0.0-0.8); MONO % 7.3 % (2.0-8.0); NEUTROPHILS # 6.1 10^3/uL (1.5-8.5); NEUTROPHILS % 70.5 % (36.0-66.0); PLATELET COUNT, AUTOMATED 313 10^3/uL (150-450); RED BLOOD COUNT 2.75 10^6/uL (4.00-5.40); WHITE BLOOD COUNT 8.6 10^3/uL (4.0-10.0)
[2022-05-21 11:43] LABS: CALCIUM LEVEL 8.6 MG/DL (8.3-10.6); CREATININE FOR GFR 1.26 MG/DL (0.55-1.30); GLOMERULAR FILTRATION RATE 44.6 (>39); POTASSIUM SERUM 4.3 MMOL/L (3.5-5.1)
[2022-05-21] MEDS: oxyCODONE 5MG TAB PO PRN ×2 (14:14→18:15)
[2022-05-21] MEDS: LIDOCAINE 5% (LIDODERM) PATCH TD SCH (18:12)
[2022-05-21] MEDS: DICLOFENAC EPOLAMINE 1.3% PATCH TOP SCH ×2 (18:14→21:20)
[2022-05-21 20:15] VITALS: BP 142/64
[2022-05-21] MEDS: SODIUM CHLORIDE 0.9% INJ 10 ML SYR IV PRN (23:42)
[2022-05-22] MEDS: PIPERACILLIN/TAZOBACTAM SOD 3.375 GM in D5W MINI-BAG PLUS 50 ML IV SCH ×4 (03:40→20:36)
[2022-05-22] MEDS: SODIUM CHLORIDE 0.9% INJ 10 ML SYR IV SCH ×2 (04:48→17:55)
[2022-05-22] MEDS: oxyCODONE 5MG TAB PO PRN (04:59)
[2022-05-22 05:32] VITALS: BP 134/63
[2022-05-22] MEDS: REMEDY PHYTOPLEX Z-GUARD PASTE 113GM TUBE (FROM STOREROOM PRODUCT) TOP SCH ×3 (09:00→20:36)
[2022-05-22] MEDS: SUCRALFATE 1 GM TAB PO SCH ×4 (09:14→20:35)
[2022-05-22] MEDS: POTASSIUM CHLORIDE 10MEQ SR TABLET PO SCH (09:15)
[2022-05-22] MEDS: CLOPIDOGREL 75 MG TAB PO SCH (09:15)
[2022-05-22] MEDS: PANTOPRAZOLE 40MG TAB (PROTONIX) PO SCH ×2 (09:15→20:35)
[2022-05-22] MEDS: LACTOBACILLUS ACIDOPHILUS CAP (BACID) PO SCH ×2 (09:15→17:54)
[2022-05-22] MEDS: ASPIRIN 81MG ENTERIC TABLET PO SCH (09:15)
[2022-05-22] MEDS: VORICONAZOLE 200MG TABLET (VFEND) PO SCH ×2 (09:15→20:34)
[2022-05-22] MEDS: INSULIN LISPRO (NovoLOG) PER UNIT SC SCH ×4 (09:15→20:40)
[2022-05-22] MEDS: ROSUVASTATIN 10 MG TAB (CRESTOR) PO SCH (09:16)
[2022-05-22] MEDS: FUROSEMIDE 20 MG TAB PO SCH (09:16)
[2022-05-22] MEDS: CARVedilol 6.25 MG TAB PO SCH ×2 (09:16→20:35)
[2022-05-22] MEDS: DICLOFENAC EPOLAMINE 1.3% PATCH TOP SCH ×2 (09:17→20:33)
[2022-05-22] MEDS: ACETAMINOPHEN 500 MG TAB PO SCH ×2 (09:19→15:52)
[2022-05-22] MEDS: TIMOLOL MALEATE 0.5% OPHTH SOLN 5 ML OU SCH ×2 (09:19→20:36)
[2022-05-22] MEDS: LIDOCAINE 5% (LIDODERM) PATCH TD SCH (09:20)
[2022-05-22 14:00] VITALS: BP 130/62
[2022-05-22 20:00] VITALS: BP 142/64
[2022-05-22] MEDS: ACETAMINOPHEN 650MG ER TAB (TYLENOL ARTHRITIS) PO SCH (20:34)
[2022-05-22] MEDS ORDERED: SANTYL OINT 30GM TOP SCH (21:00)
[2022-05-22] MEDS: SODIUM CHLORIDE 0.9% INJ 10 ML SYR IV PRN (21:25)
[2022-05-23] MEDS: PIPERACILLIN/TAZOBACTAM SOD 3.375 GM in D5W MINI-BAG PLUS 50 ML IV SCH ×2 (02:41→08:45)
[2022-05-23] MEDS: SODIUM CHLORIDE 0.9% INJ 10 ML SYR IV SCH ×2 (03:43→17:15)
[2022-05-23 06:00] VITALS: BP 153/69
[2022-05-23] MEDS: SUCRALFATE 1 GM TAB PO SCH ×4 (07:30→20:24)
[2022-05-23] MEDS: oxyCODONE 5MG TAB PO PRN ×2 (08:44→20:25)
[2022-05-23] MEDS: ACETAMINOPHEN 650MG ER TAB (TYLENOL ARTHRITIS) PO SCH ×3 (08:45→20:24)
[2022-05-23] MEDS: POTASSIUM CHLORIDE 10MEQ SR TABLET PO SCH (08:45)
[2022-05-23] MEDS: INSULIN LISPRO (NovoLOG) PER UNIT SC SCH ×4 (08:45→20:25)
[2022-05-23] MEDS: CLOPIDOGREL 75 MG TAB PO SCH (08:46)
[2022-05-23] MEDS: LACTOBACILLUS ACIDOPHILUS CAP (BACID) PO SCH ×2 (08:46→17:13)
[2022-05-23] MEDS: PANTOPRAZOLE 40MG TAB (PROTONIX) PO SCH ×2 (08:46→20:24)
[2022-05-23] MEDS: ASPIRIN 81MG ENTERIC TABLET PO SCH (08:46)
[2022-05-23] MEDS: LIDOCAINE 5% (LIDODERM) PATCH TD SCH (08:46)
[2022-05-23] MEDS: FUROSEMIDE 20 MG TAB PO SCH (08:46)
[2022-05-23] MEDS: DICLOFENAC EPOLAMINE 1.3% PATCH TOP SCH ×2 (08:46→20:23)
[2022-05-23] MEDS: ROSUVASTATIN 10 MG TAB (CRESTOR) PO SCH (08:47)
[2022-05-23] MEDS: VORICONAZOLE 200MG TABLET (VFEND) PO SCH ×2 (08:47→20:25)
[2022-05-23] MEDS: CARVedilol 6.25 MG TAB PO SCH ×2 (08:47→20:24)
[2022-05-23] MEDS: TIMOLOL MALEATE 0.5% OPHTH SOLN 5 ML OU SCH ×2 (08:48→20:26)
[2022-05-23] MEDS: REMEDY PHYTOPLEX Z-GUARD PASTE 113GM TUBE (FROM STOREROOM PRODUCT) TOP SCH ×3 (08:48→20:26)
[2022-05-23 10:06] LABS: BASO # 0.1 10^3/uL (0.0-0.2); BASO % 0.4 % (0.0-1.0); EOS # 0.1 10^3/uL (0.0-0.5); EOS % 1.2 % (0.0-3.0); HEMATOCRIT 27.1 % (36.0-47.0); HEMOGLOBIN 8.6 g/dl (12.0-15.5); LYMPH # 1.4 10^3/uL (1.5-5.0); LYMPH % 11.4 % (24.0-44.0); MEAN CORPUSCULAR HEMOGLOBIN 30.7 pg (27.0-33.0); MEAN CORPUSCULAR HGB CONC 31.7 g/dl (32.0-36.5); MEAN CORPUSCULAR VOLUME 96.8 fl (80.0-96.0); MONO # 0.8 10^3/uL (0.0-0.8); MONO % 6.4 % (2.0-8.0); NEUTROPHILS # 9.5 10^3/uL (1.5-8.5); NEUTROPHILS % 80.2 % (36.0-66.0); PLATELET COUNT, AUTOMATED 300 10^3/uL (150-450); WHITE BLOOD COUNT 11.9 10^3/uL (4.0-10.0)
[2022-05-23 10:29] LABS: CALCIUM LEVEL 9.2 MG/DL (8.3-10.6); CREATININE FOR GFR 1.31 MG/DL (0.55-1.30); GLOMERULAR FILTRATION RATE 42.6 (>39); POTASSIUM SERUM 3.8 MMOL/L (3.5-5.1)
[2022-05-23 11:00] LABS: C REACTIVE PROTEIN QUANTITATIV 5.3 MG/DL (<1.0)
[2022-05-23] MEDS: cefTRIAXone SOD 2 GM in D5W MINI-BAG PLUS 50 ML IV SCH (11:14)
[2022-05-23 14:00] VITALS: BP 116/56
[2022-05-23] MEDS: LOPERAMIDE 2 MG CAPLET PO SCH (17:13)
[2022-05-23 20:00] VITALS: BP 152/66
[2022-05-24] MEDS: SODIUM CHLORIDE 0.9% INJ 10 ML SYR IV SCH ×2 (05:27→18:15)
[2022-05-24 06:00] VITALS: BP 146/65
[2022-05-24] MEDS: LOPERAMIDE 2 MG CAPLET PO SCH ×2 (06:51→19:31)
[2022-05-24] MEDS: oxyCODONE 5MG TAB PO PRN ×2 (07:40→20:33)
[2022-05-24] MEDS: INSULIN LISPRO (NovoLOG) PER UNIT SC SCH ×4 (07:56→20:35)
[2022-05-24] MEDS: LACTOBACILLUS ACIDOPHILUS CAP (BACID) PO SCH ×2 (07:57→18:14)
[2022-05-24] MEDS: SUCRALFATE 1 GM TAB PO SCH ×4 (07:57→20:33)
[2022-05-24] MEDS: REMEDY PHYTOPLEX Z-GUARD PASTE 113GM TUBE (FROM STOREROOM PRODUCT) TOP SCH ×3 (09:00→19:53)
[2022-05-24] MEDS: ACETAMINOPHEN 650MG ER TAB (TYLENOL ARTHRITIS) PO SCH ×3 (09:04→20:34)
[2022-05-24] MEDS: CARVedilol 6.25 MG TAB PO SCH ×2 (09:05→20:34)
[2022-05-24] MEDS: VORICONAZOLE 200MG TABLET (VFEND) PO SCH ×2 (09:05→20:33)
[2022-05-24] MEDS: ROSUVASTATIN 10 MG TAB (CRESTOR) PO SCH (09:05)
[2022-05-24] MEDS: ASPIRIN 81MG ENTERIC TABLET PO SCH (09:05)
[2022-05-24] MEDS: PANTOPRAZOLE 40MG TAB (PROTONIX) PO SCH ×2 (09:05→20:34)
[2022-05-24] MEDS: FUROSEMIDE 20 MG TAB PO SCH (09:05)
[2022-05-24] MEDS: POTASSIUM CHLORIDE 10MEQ SR TABLET PO SCH (09:06)
[2022-05-24] MEDS: LIDOCAINE 5% (LIDODERM) PATCH TD SCH (09:06)
[2022-05-24] MEDS: CLOPIDOGREL 75 MG TAB PO SCH (09:06)
[2022-05-24] MEDS: DICLOFENAC EPOLAMINE 1.3% PATCH TOP SCH ×2 (09:06→20:33)
[2022-05-24] MEDS: cefTRIAXone SOD 2 GM in D5W MINI-BAG PLUS 50 ML IV SCH (11:18)
[2022-05-24] MEDS: TIMOLOL MALEATE 0.5% OPHTH SOLN 5 ML OU SCH ×2 (11:19→20:35)
[2022-05-24 14:00] VITALS: BP 124/60
[2022-05-24 18:00] VITALS: BP 124/60
[2022-05-24 20:00] VITALS: BP 132/61
[2022-05-25 06:00] VITALS: BP 143/67
[2022-05-25] MEDS: SODIUM CHLORIDE 0.9% INJ 10 ML SYR IV SCH ×2 (06:19→17:49)
[2022-05-25] MEDS: ASPIRIN 81MG ENTERIC TABLET PO SCH (08:27)
[2022-05-25] MEDS: INSULIN LISPRO (NovoLOG) PER UNIT SC SCH ×4 (08:27→20:18)
[2022-05-25] MEDS: ROSUVASTATIN 10 MG TAB (CRESTOR) PO SCH (08:27)
[2022-05-25] MEDS: VORICONAZOLE 200MG TABLET (VFEND) PO SCH ×2 (08:28→20:15)
[2022-05-25] MEDS: LACTOBACILLUS ACIDOPHILUS CAP (BACID) PO SCH ×2 (08:28→17:48)
[2022-05-25] MEDS: CLOPIDOGREL 75 MG TAB PO SCH (08:28)
[2022-05-25] MEDS: POTASSIUM CHLORIDE 10MEQ SR TABLET PO SCH (08:28)
[2022-05-25] MEDS: PANTOPRAZOLE 40MG TAB (PROTONIX) PO SCH ×2 (08:28→20:15)
[2022-05-25] MEDS: ACETAMINOPHEN 650MG ER TAB (TYLENOL ARTHRITIS) PO SCH ×3 (08:29→20:15)
[2022-05-25] MEDS: CARVedilol 6.25 MG TAB PO SCH ×2 (08:29→20:17)
[2022-05-25] MEDS: FUROSEMIDE 20 MG TAB PO SCH (08:29)
[2022-05-25] MEDS: SUCRALFATE 1 GM TAB PO SCH ×4 (08:29→20:15)
[2022-05-25] MEDS: LOPERAMIDE 2 MG CAPLET PO SCH ×2 (08:29→19:28)
[2022-05-25] MEDS: LIDOCAINE 5% (LIDODERM) PATCH TD SCH (08:30)
[2022-05-25] MEDS: REMEDY PHYTOPLEX Z-GUARD PASTE 113GM TUBE (FROM STOREROOM PRODUCT) TOP SCH ×3 (08:31→19:24)
[2022-05-25] MEDS: DICLOFENAC EPOLAMINE 1.3% PATCH TOP SCH ×2 (08:31→20:17)
[2022-05-25] MEDS: TIMOLOL MALEATE 0.5% OPHTH SOLN 5 ML OU SCH ×2 (08:32→20:17)
[2022-05-25] MEDS: oxyCODONE 5MG TAB PO PRN ×2 (10:06→19:28)
[2022-05-25] MEDS: cefTRIAXone SOD 2 GM in D5W MINI-BAG PLUS 50 ML IV SCH (11:34)
[2022-05-25] MEDS: SODIUM CHLORIDE 0.9% INJ 10 ML SYR IV PRN (11:35)
[2022-05-25 14:00] VITALS: BP 151/67
[2022-05-25 19:47] VITALS: BP 145/65
[2022-05-26] MEDS: SODIUM CHLORIDE 0.9% INJ 10 ML SYR IV SCH ×2 (05:54→17:41)
[2022-05-26 06:00] VITALS: BP 131/63
[2022-05-26] MEDS: LACTOBACILLUS ACIDOPHILUS CAP (BACID) PO SCH ×2 (08:40→17:39)
[2022-05-26] MEDS: LOPERAMIDE 2 MG CAPLET PO SCH (08:40)
[2022-05-26] MEDS: ROSUVASTATIN 10 MG TAB (CRESTOR) PO SCH (08:41)
[2022-05-26] MEDS: PANTOPRAZOLE 40MG TAB (PROTONIX) PO SCH ×2 (08:41→21:32)
[2022-05-26] MEDS: SUCRALFATE 1 GM TAB PO SCH ×4 (08:41→21:32)
[2022-05-26] MEDS: ACETAMINOPHEN 650MG ER TAB (TYLENOL ARTHRITIS) PO SCH ×3 (08:41→21:32)
[2022-05-26] MEDS: FUROSEMIDE 20 MG TAB PO SCH (08:41)
[2022-05-26] MEDS: ASPIRIN 81MG ENTERIC TABLET PO SCH (08:41)
[2022-05-26] MEDS: CLOPIDOGREL 75 MG TAB PO SCH (08:41)
[2022-05-26] MEDS: POTASSIUM CHLORIDE 10MEQ SR TABLET PO SCH (08:42)
[2022-05-26] MEDS: LIDOCAINE 5% (LIDODERM) PATCH TD SCH (08:42)
[2022-05-26] MEDS: DICLOFENAC EPOLAMINE 1.3% PATCH TOP SCH ×2 (08:42→21:33)
[2022-05-26] MEDS: CARVedilol 6.25 MG TAB PO SCH ×2 (08:42→21:33)
[2022-05-26] MEDS: VORICONAZOLE 200MG TABLET (VFEND) PO SCH ×2 (08:42→21:57)
[2022-05-26] MEDS: TIMOLOL MALEATE 0.5% OPHTH SOLN 5 ML OU SCH ×2 (08:43→21:45)
[2022-05-26] MEDS: REMEDY PHYTOPLEX Z-GUARD PASTE 113GM TUBE (FROM STOREROOM PRODUCT) TOP SCH ×3 (08:45→21:00)
[2022-05-26] MEDS: INSULIN LISPRO (NovoLOG) PER UNIT SC SCH ×4 (08:45→21:00)
[2022-05-26] MEDS: oxyCODONE 5MG TAB PO PRN (10:02)
[2022-05-26] MEDS: HEPARIN SOD (PORCINE) 5000UNITS/ML 1ML VIAL/SYRINGE SQ SCH ×2 (10:14→21:32)
[2022-05-26 10:23] LABS: BASO % 0.3 % (0.0-1.0); EOS # 0.1 10^3/uL (0.0-0.5); EOS % 1.4 % (0.0-3.0); HEMATOCRIT 27.3 % (36.0-47.0); HEMOGLOBIN 8.7 g/dl (12.0-15.5); LYMPH # 1.2 10^3/uL (1.5-5.0); LYMPH % 12.2 % (24.0-44.0); MEAN CORPUSCULAR HEMOGLOBIN 30.4 pg (27.0-33.0); MEAN CORPUSCULAR HGB CONC 31.9 g/dl (32.0-36.5); MEAN CORPUSCULAR VOLUME 95.5 fl (80.0-96.0); MONO # 0.6 10^3/uL (0.0-0.8); MONO % 6.1 % (2.0-8.0); NEUTROPHILS # 7.8 10^3/uL (1.5-8.5); NEUTROPHILS % 79.6 % (36.0-66.0); PLATELET COUNT, AUTOMATED 315 10^3/uL (150-450); RED BLOOD COUNT 2.86 10^6/uL (4.00-5.40); WHITE BLOOD COUNT 9.8 10^3/uL (4.0-10.0)
[2022-05-26 10:44] LABS: CALCIUM LEVEL 9.1 MG/DL (8.3-10.6); CREATININE FOR GFR 1.33 MG/DL (0.55-1.30); GLOMERULAR FILTRATION RATE 41.9 (>39); POTASSIUM SERUM 4.5 MMOL/L (3.5-5.1)
[2022-05-26] MEDS: cefTRIAXone SOD 2 GM in D5W MINI-BAG PLUS 50 ML IV SCH (11:38)
[2022-05-26 14:00] VITALS: BP 144/67
[2022-05-26] MEDS ORDERED: LOPERAMIDE 2 MG CAPLET PO SCH (18:00)
[2022-05-26 20:00] VITALS: BP 136/76
[2022-05-27] MEDS: SODIUM CHLORIDE 0.9% INJ 10 ML SYR IV SCH ×2 (05:21→18:06)
[2022-05-27 06:00] VITALS: BP 132/61
[2022-05-27] MEDS: INSULIN LISPRO (NovoLOG) PER UNIT SC SCH ×4 (07:30→20:46)
[2022-05-27] MEDS: DICLOFENAC EPOLAMINE 1.3% PATCH TOP SCH ×2 (07:50→20:45)
[2022-05-27] MEDS: POTASSIUM CHLORIDE 10MEQ SR TABLET PO SCH (07:51)
[2022-05-27] MEDS: ASPIRIN 81MG ENTERIC TABLET PO SCH (07:51)
[2022-05-27] MEDS: LIDOCAINE 5% (LIDODERM) PATCH TD SCH (07:51)
[2022-05-27] MEDS: ROSUVASTATIN 10 MG TAB (CRESTOR) PO SCH (07:51)
[2022-05-27] MEDS: FUROSEMIDE 20 MG TAB PO SCH (07:52)
[2022-05-27] MEDS: SUCRALFATE 1 GM TAB PO SCH ×4 (07:52→21:22)
[2022-05-27] MEDS: ACETAMINOPHEN 650MG ER TAB (TYLENOL ARTHRITIS) PO SCH ×3 (07:52→20:44)
[2022-05-27] MEDS: LACTOBACILLUS ACIDOPHILUS CAP (BACID) PO SCH ×2 (07:52→18:04)
[2022-05-27] MEDS: CARVedilol 6.25 MG TAB PO SCH ×2 (07:52→20:45)
[2022-05-27] MEDS: CLOPIDOGREL 75 MG TAB PO SCH (07:53)
[2022-05-27] MEDS: PANTOPRAZOLE 40MG TAB (PROTONIX) PO SCH ×2 (07:53→20:44)
[2022-05-27] MEDS: HEPARIN SOD (PORCINE) 5000UNITS/ML 1ML VIAL/SYRINGE SQ SCH ×2 (07:54→20:45)
[2022-05-27] MEDS: TIMOLOL MALEATE 0.5% OPHTH SOLN 5 ML OU SCH ×2 (07:55→20:46)
[2022-05-27] MEDS: REMEDY PHYTOPLEX Z-GUARD PASTE 113GM TUBE (FROM STOREROOM PRODUCT) TOP SCH ×3 (07:55→20:47)
[2022-05-27 07:56] LABS: CLOSTRIDIUM DIFFICILE PCR NEGATIVE (NEGATIVE)
[2022-05-27] MEDS: cefTRIAXone SOD 2 GM in D5W MINI-BAG PLUS 50 ML IV SCH (11:20)
[2022-05-27] MEDS: ASCORBIC ACID 500 MG TAB PO SCH (12:14)
[2022-05-27] MEDS: ZINC SULFATE 220 MG CAP PO SCH (12:14)
[2022-05-27] MEDS: LOPERAMIDE 2 MG CAPLET PO SCH ×2 (12:15→18:05)
[2022-05-27 14:00] VITALS: BP 150/67
[2022-05-27] MEDS: VORICONAZOLE 200MG TABLET (VFEND) PO SCH ×2 (14:13→20:44)
[2022-05-27] MEDS: oxyCODONE 5MG TAB PO PRN (15:51)
[2022-05-27 20:00] VITALS: BP 160/67
[2022-05-28 05:40] VITALS: BP 168/78
[2022-05-28] MEDS: SODIUM CHLORIDE 0.9% INJ 10 ML SYR IV SCH ×2 (05:45→17:40)
[2022-05-28 06:30] LABS: BASO % 0.6 % (0.0-1.0); EOS # 0.2 10^3/uL (0.0-0.5); EOS % 2.3 % (0.0-3.0); HEMATOCRIT 25.7 % (36.0-47.0); HEMOGLOBIN 8.3 g/dl (12.0-15.5); LYMPH # 1.9 10^3/uL (1.5-5.0); LYMPH % 28.9 % (24.0-44.0); MEAN CORPUSCULAR HEMOGLOBIN 30.7 pg (27.0-33.0); MEAN CORPUSCULAR HGB CONC 32.3 g/dl (32.0-36.5); MEAN CORPUSCULAR VOLUME 95.2 fl (80.0-96.0); MONO # 0.7 10^3/uL (0.0-0.8); MONO % 10.3 % (2.0-8.0); NEUTROPHILS # 3.8 10^3/uL (1.5-8.5); NEUTROPHILS % 57.6 % (36.0-66.0); PLATELET COUNT, AUTOMATED 324 10^3/uL (150-450); WHITE BLOOD COUNT 6.6 10^3/uL (4.0-10.0)
[2022-05-28 06:53] LABS: CREATININE FOR GFR 1.46 MG/DL (0.55-1.30); GLOMERULAR FILTRATION RATE 37.6 (>39); POTASSIUM SERUM 4.8 MMOL/L (3.5-5.1)
[2022-05-28] MEDS: LOPERAMIDE 2 MG CAPLET PO SCH ×3 (07:41→17:39)
[2022-05-28] MEDS: INSULIN LISPRO (NovoLOG) PER UNIT SC SCH ×4 (07:41→20:47)
[2022-05-28] MEDS: CARVedilol 6.25 MG TAB PO SCH ×2 (07:42→20:46)
[2022-05-28] MEDS: ASPIRIN 81MG ENTERIC TABLET PO SCH (07:42)
[2022-05-28] MEDS: CLOPIDOGREL 75 MG TAB PO SCH (07:42)
[2022-05-28] MEDS: LACTOBACILLUS ACIDOPHILUS CAP (BACID) PO SCH ×2 (07:42→17:39)
[2022-05-28] MEDS: FUROSEMIDE 20 MG TAB PO SCH (07:43)
[2022-05-28] MEDS: SUCRALFATE 1 GM TAB PO SCH ×4 (07:43→20:46)
[2022-05-28] MEDS: ASCORBIC ACID 500 MG TAB PO SCH (07:43)
[2022-05-28] MEDS: POTASSIUM CHLORIDE 10MEQ SR TABLET PO SCH (07:43)
[2022-05-28] MEDS: DICLOFENAC EPOLAMINE 1.3% PATCH TOP SCH ×2 (07:44→20:47)
[2022-05-28] MEDS: PANTOPRAZOLE 40MG TAB (PROTONIX) PO SCH ×2 (07:44→20:46)
[2022-05-28] MEDS: ROSUVASTATIN 10 MG TAB (CRESTOR) PO SCH (07:56)
[2022-05-28] MEDS: VORICONAZOLE 200MG TABLET (VFEND) PO SCH ×2 (07:56→20:46)
[2022-05-28] MEDS: ZINC SULFATE 220 MG CAP PO SCH (07:56)
[2022-05-28] MEDS: ACETAMINOPHEN 650MG ER TAB (TYLENOL ARTHRITIS) PO SCH ×3 (07:56→20:46)
[2022-05-28] MEDS: HEPARIN SOD (PORCINE) 5000UNITS/ML 1ML VIAL/SYRINGE SQ SCH ×2 (07:56→20:47)
[2022-05-28] MEDS: LIDOCAINE 5% (LIDODERM) PATCH TD SCH (07:57)
[2022-05-28] MEDS: REMEDY PHYTOPLEX Z-GUARD PASTE 113GM TUBE (FROM STOREROOM PRODUCT) TOP SCH ×3 (09:00→20:48)
[2022-05-28] MEDS: cefTRIAXone SOD 2 GM in D5W MINI-BAG PLUS 50 ML IV SCH (11:22)
[2022-05-28] MEDS: TIMOLOL MALEATE 0.5% OPHTH SOLN 5 ML OU SCH ×2 (11:23→20:48)
[2022-05-28] MEDS: SODIUM CHLORIDE 0.9% INJ 10 ML SYR IV PRN (12:22)
[2022-05-28 14:00] VITALS: BP 165/77
[2022-05-28] MEDS: oxyCODONE 5MG TAB PO PRN (14:02)
[2022-05-28 20:02] VITALS: BP 138/65
[2022-05-29] MEDS: SODIUM CHLORIDE 0.9% INJ 10 ML SYR IV SCH ×2 (05:32→18:39)
[2022-05-29 06:00] VITALS: BP 140/62
[2022-05-29] MEDS: INSULIN LISPRO (NovoLOG) PER UNIT SC SCH ×4 (07:34→20:10)
[2022-05-29] MEDS: ACETAMINOPHEN 650MG ER TAB (TYLENOL ARTHRITIS) PO SCH ×3 (07:35→20:45)
[2022-05-29] MEDS: POTASSIUM CHLORIDE 10MEQ SR TABLET PO SCH (07:35)
[2022-05-29] MEDS: PANTOPRAZOLE 40MG TAB (PROTONIX) PO SCH (07:35)
[2022-05-29] MEDS: ASPIRIN 81MG ENTERIC TABLET PO SCH (07:35)
[2022-05-29] MEDS: SUCRALFATE 1 GM TAB PO SCH ×4 (07:35→20:45)
[2022-05-29] MEDS: LACTOBACILLUS ACIDOPHILUS CAP (BACID) PO SCH ×2 (07:35→18:39)
[2022-05-29] MEDS: HEPARIN SOD (PORCINE) 5000UNITS/ML 1ML VIAL/SYRINGE SQ SCH ×2 (07:35→20:44)
[2022-05-29] MEDS: ZINC SULFATE 220 MG CAP PO SCH (07:36)
[2022-05-29] MEDS: ASCORBIC ACID 500 MG TAB PO SCH (07:36)
[2022-05-29] MEDS: VORICONAZOLE 200MG TABLET (VFEND) PO SCH ×2 (07:36→20:45)
[2022-05-29] MEDS: CLOPIDOGREL 75 MG TAB PO SCH (07:36)
[2022-05-29] MEDS: ROSUVASTATIN 10 MG TAB (CRESTOR) PO SCH (07:36)
[2022-05-29] MEDS: LOPERAMIDE 2 MG CAPLET PO SCH ×2 (07:37→13:47)
[2022-05-29] MEDS: DICLOFENAC EPOLAMINE 1.3% PATCH TOP SCH ×2 (07:37→20:46)
[2022-05-29] MEDS: CARVedilol 6.25 MG TAB PO SCH ×2 (07:37→20:45)
[2022-05-29] MEDS: LIDOCAINE 5% (LIDODERM) PATCH TD SCH (07:37)
[2022-05-29] MEDS: REMEDY PHYTOPLEX Z-GUARD PASTE 113GM TUBE (FROM STOREROOM PRODUCT) TOP SCH ×3 (07:38→20:45)
[2022-05-29] MEDS: TIMOLOL MALEATE 0.5% OPHTH SOLN 5 ML OU SCH ×2 (07:38→20:46)
[2022-05-29] MEDS: cefTRIAXone SOD 2 GM in D5W MINI-BAG PLUS 50 ML IV SCH (11:03)
[2022-05-29] MEDS: SODIUM CHLORIDE 0.9% INJ 10 ML SYR IV PRN (11:45)
[2022-05-29 12:00] VITALS: BP 137/62
[2022-05-29 20:00] VITALS: BP 142/65
[2022-05-30] MEDS: SODIUM CHLORIDE 0.9% INJ 10 ML SYR IV SCH ×2 (05:23→18:03)
[2022-05-30 06:00] VITALS: BP 145/64
[2022-05-30 07:22] LABS: CALCIUM LEVEL 9.5 MG/DL (8.3-10.6); CREATININE FOR GFR 1.41 MG/DL (0.55-1.30); GLOMERULAR FILTRATION RATE 39.1 (>39); POTASSIUM SERUM 4.1 MMOL/L (3.5-5.1)
[2022-05-30] MEDS: SUCRALFATE 1 GM TAB PO SCH ×4 (08:27→21:58)
[2022-05-30] MEDS: CEFDINIR 300 MG CAP (OMNICEF) PO SCH (08:27)
[2022-05-30] MEDS: ROSUVASTATIN 10 MG TAB (CRESTOR) PO SCH (08:27)
[2022-05-30] MEDS: ZINC SULFATE 220 MG CAP PO SCH (08:27)
[2022-05-30] MEDS: ASCORBIC ACID 500 MG TAB PO SCH (08:28)
[2022-05-30] MEDS: VORICONAZOLE 200MG TABLET (VFEND) PO SCH ×2 (08:28→21:58)
[2022-05-30] MEDS: CLOPIDOGREL 75 MG TAB PO SCH (08:28)
[2022-05-30] MEDS: ASPIRIN 81MG ENTERIC TABLET PO SCH (08:28)
[2022-05-30] MEDS: CARVedilol 6.25 MG TAB PO SCH ×2 (08:29→21:57)
[2022-05-30] MEDS: POTASSIUM CHLORIDE 10MEQ SR TABLET PO SCH (08:29)
[2022-05-30] MEDS: LOPERAMIDE 2 MG CAPLET PO SCH ×2 (08:29→12:38)
[2022-05-30] MEDS: LACTOBACILLUS ACIDOPHILUS CAP (BACID) PO SCH ×2 (08:29→18:02)
[2022-05-30] MEDS: INSULIN LISPRO (NovoLOG) PER UNIT SC SCH ×4 (08:30→22:00)
[2022-05-30] MEDS: ACETAMINOPHEN 650MG ER TAB (TYLENOL ARTHRITIS) PO SCH ×3 (08:30→21:57)
[2022-05-30] MEDS: HEPARIN SOD (PORCINE) 5000UNITS/ML 1ML VIAL/SYRINGE SQ SCH ×2 (08:31→21:57)
[2022-05-30] MEDS: REMEDY PHYTOPLEX Z-GUARD PASTE 113GM TUBE (FROM STOREROOM PRODUCT) TOP SCH ×3 (08:31→21:58)
[2022-05-30] MEDS: TIMOLOL MALEATE 0.5% OPHTH SOLN 5 ML OU SCH ×2 (08:32→22:00)
[2022-05-30] MEDS: LIDOCAINE 5% (LIDODERM) PATCH TD SCH (08:32)
[2022-05-30] MEDS: DICLOFENAC EPOLAMINE 1.3% PATCH TOP SCH ×2 (08:32→21:58)
[2022-05-30 09:14] LABS: C REACTIVE PROTEIN QUANTITATIV 1.1 MG/DL (<1.0)
[2022-05-30 14:00] VITALS: BP 141/64
[2022-05-30] MEDS: oxyCODONE 5MG TAB PO PRN (18:47)
[2022-05-30 20:00] VITALS: BP 132/63
[2022-05-31] MEDS: SODIUM CHLORIDE 0.9% INJ 10 ML SYR IV SCH ×2 (05:38→18:05)
[2022-05-31 06:00] VITALS: BP 145/64
[2022-05-31 07:24] LABS: BASO # 0.1 10^3/uL (0.0-0.2); BASO % 0.8 % (0.0-1.0); EOS # 0.2 10^3/uL (0.0-0.5); EOS % 2.8 % (0.0-3.0); HEMATOCRIT 27.8 % (36.0-47.0); HEMOGLOBIN 8.7 g/dl (12.0-15.5); LYMPH # 2.2 10^3/uL (1.5-5.0); MEAN CORPUSCULAR HEMOGLOBIN 30.1 pg (27.0-33.0); MEAN CORPUSCULAR HGB CONC 31.3 g/dl (32.0-36.5); MEAN CORPUSCULAR VOLUME 96.2 fl (80.0-96.0); MONO # 0.6 10^3/uL (0.0-0.8); MONO % 9.3 % (2.0-8.0); NEUTROPHILS # 3.1 10^3/uL (1.5-8.5); NEUTROPHILS % 50.9 % (36.0-66.0); PLATELET COUNT, AUTOMATED 350 10^3/uL (150-450); RED BLOOD COUNT 2.89 10^6/uL (4.00-5.40)
[2022-05-31 07:45] LABS: CALCIUM LEVEL 9.1 MG/DL (8.3-10.6); CREATININE FOR GFR 1.43 MG/DL (0.55-1.30); GLOMERULAR FILTRATION RATE 38.5 (>39); POTASSIUM SERUM 4.4 MMOL/L (3.5-5.1)
[2022-05-31] MEDS: SUCRALFATE 1 GM TAB PO SCH ×4 (08:54→20:41)
[2022-05-31] MEDS: LOPERAMIDE 2 MG CAPLET PO SCH ×2 (08:54→12:53)
[2022-05-31] MEDS: LACTOBACILLUS ACIDOPHILUS CAP (BACID) PO SCH ×2 (08:54→18:03)
[2022-05-31] MEDS: ROSUVASTATIN 10 MG TAB (CRESTOR) PO SCH (08:55)
[2022-05-31] MEDS: CLOPIDOGREL 75 MG TAB PO SCH (08:55)
[2022-05-31] MEDS: POTASSIUM CHLORIDE 10MEQ SR TABLET PO SCH (08:55)
[2022-05-31] MEDS: ZINC SULFATE 220 MG CAP PO SCH (08:55)
[2022-05-31] MEDS: ASCORBIC ACID 500 MG TAB PO SCH (08:56)
[2022-05-31] MEDS: ACETAMINOPHEN 650MG ER TAB (TYLENOL ARTHRITIS) PO SCH ×3 (08:56→20:41)
[2022-05-31] MEDS: ASPIRIN 81MG ENTERIC TABLET PO SCH (08:56)
[2022-05-31] MEDS: VORICONAZOLE 200MG TABLET (VFEND) PO SCH ×2 (08:56→20:41)
[2022-05-31] MEDS: CEFDINIR 300 MG CAP (OMNICEF) PO SCH (08:56)
[2022-05-31] MEDS: CARVedilol 6.25 MG TAB PO SCH ×2 (08:57→20:41)
[2022-05-31] MEDS: INSULIN LISPRO (NovoLOG) PER UNIT SC SCH ×4 (08:57→20:42)
[2022-05-31] MEDS: HEPARIN SOD (PORCINE) 5000UNITS/ML 1ML VIAL/SYRINGE SQ SCH ×2 (08:58→20:40)
[2022-05-31] MEDS: SODIUM CHLORIDE NASAL 0.65% SPRAY BTL (OCEAN) SCH ×3 (08:59→20:40)
[2022-05-31] MEDS: DICLOFENAC EPOLAMINE 1.3% PATCH TOP SCH ×2 (08:59→20:41)
[2022-05-31] MEDS: LIDOCAINE 5% (LIDODERM) PATCH TD SCH (08:59)
[2022-05-31] MEDS: TIMOLOL MALEATE 0.5% OPHTH SOLN 5 ML OU SCH ×2 (08:59→20:43)
[2022-05-31] MEDS: REMEDY PHYTOPLEX Z-GUARD PASTE 113GM TUBE (FROM STOREROOM PRODUCT) TOP SCH ×3 (08:59→20:43)
[2022-05-31 14:09] VITALS: BP 132/58
[2022-05-31 20:00] VITALS: BP 141/65
[2022-06-01] MEDS: SODIUM CHLORIDE 0.9% INJ 10 ML SYR IV SCH ×2 (05:04→18:14)
[2022-06-01] MEDS: oxyCODONE 5MG TAB PO PRN (05:11)
[2022-06-01 06:00] VITALS: BP 140/65
[2022-06-01] MEDS: CEFDINIR 300 MG CAP (OMNICEF) PO SCH (08:17)
[2022-06-01] MEDS: LIDOCAINE 5% (LIDODERM) PATCH TD SCH (08:17)
[2022-06-01] MEDS: HEPARIN SOD (PORCINE) 5000UNITS/ML 1ML VIAL/SYRINGE SQ SCH ×2 (08:17→20:25)
[2022-06-01] MEDS: DICLOFENAC EPOLAMINE 1.3% PATCH TOP SCH ×2 (08:17→20:25)
[2022-06-01] MEDS: LACTOBACILLUS ACIDOPHILUS CAP (BACID) PO SCH ×2 (08:18→18:13)
[2022-06-01] MEDS: ROSUVASTATIN 10 MG TAB (CRESTOR) PO SCH (08:18)
[2022-06-01] MEDS: ZINC SULFATE 220 MG CAP PO SCH (08:18)
[2022-06-01] MEDS: CLOPIDOGREL 75 MG TAB PO SCH (08:18)
[2022-06-01] MEDS: POTASSIUM CHLORIDE 10MEQ SR TABLET PO SCH (08:18)
[2022-06-01] MEDS: VORICONAZOLE 200MG TABLET (VFEND) PO SCH ×2 (08:18→20:25)
[2022-06-01] MEDS: ACETAMINOPHEN 650MG ER TAB (TYLENOL ARTHRITIS) PO SCH ×3 (08:18→20:25)
[2022-06-01] MEDS: ASCORBIC ACID 500 MG TAB PO SCH (08:18)
[2022-06-01] MEDS: SUCRALFATE 1 GM TAB PO SCH ×4 (08:18→20:25)
[2022-06-01] MEDS: LOPERAMIDE 2 MG CAPLET PO SCH ×2 (08:18→12:15)
[2022-06-01] MEDS: CARVedilol 6.25 MG TAB PO SCH ×2 (08:19→20:26)
[2022-06-01] MEDS: ASPIRIN 81MG ENTERIC TABLET PO SCH (08:19)
[2022-06-01] MEDS: TIMOLOL MALEATE 0.5% OPHTH SOLN 5 ML OU SCH ×2 (08:20→20:31)
[2022-06-01] MEDS: SODIUM CHLORIDE NASAL 0.65% SPRAY BTL (OCEAN) SCH ×3 (08:20→20:32)
[2022-06-01] MEDS: REMEDY PHYTOPLEX Z-GUARD PASTE 113GM TUBE (FROM STOREROOM PRODUCT) TOP SCH ×3 (08:20→20:32)
[2022-06-01] MEDS: INSULIN LISPRO (NovoLOG) PER UNIT SC SCH ×4 (08:20→20:34)
[2022-06-01 14:00] VITALS: BP 141/63
[2022-06-01 20:00] VITALS: BP 155/69
[2022-06-02 06:00] VITALS: BP 131/60
[2022-06-02] MEDS: oxyCODONE 5MG TAB PO PRN (06:17)
[2022-06-02] MEDS: SODIUM CHLORIDE 0.9% INJ 10 ML SYR IV SCH ×2 (06:17→17:51)
[2022-06-02 06:53] LABS: BASO # 0.1 10^3/uL (0.0-0.2); BASO % 0.7 % (0.0-1.0); EOS # 0.2 10^3/uL (0.0-0.5); EOS % 2.7 % (0.0-3.0); HEMATOCRIT 30.2 % (36.0-47.0); HEMOGLOBIN 9.5 g/dl (12.0-15.5); LYMPH # 2.4 10^3/uL (1.5-5.0); LYMPH % 31.5 % (24.0-44.0); MEAN CORPUSCULAR HEMOGLOBIN 30.5 pg (27.0-33.0); MEAN CORPUSCULAR HGB CONC 31.5 g/dl (32.0-36.5); MEAN CORPUSCULAR VOLUME 97.1 fl (80.0-96.0); MONO # 0.6 10^3/uL (0.0-0.8); MONO % 8.3 % (2.0-8.0); NEUTROPHILS # 4.2 10^3/uL (1.5-8.5); NEUTROPHILS % 56.5 % (36.0-66.0); PLATELET COUNT, AUTOMATED 382 10^3/uL (150-450); RED BLOOD COUNT 3.11 10^6/uL (4.00-5.40); WHITE BLOOD COUNT 7.5 10^3/uL (4.0-10.0)
[2022-06-02 07:16] LABS: CALCIUM LEVEL 9.6 MG/DL (8.3-10.6); CREATININE FOR GFR 1.28 MG/DL (0.55-1.30); GLOMERULAR FILTRATION RATE 43.8 (>39); POTASSIUM SERUM 4.2 MMOL/L (3.5-5.1)
[2022-06-02] MEDS: INSULIN LISPRO (NovoLOG) PER UNIT SC SCH ×4 (08:00→20:54)
[2022-06-02] MEDS: REMEDY PHYTOPLEX Z-GUARD PASTE 113GM TUBE (FROM STOREROOM PRODUCT) TOP SCH ×3 (09:00→20:55)
[2022-06-02] MEDS: DICLOFENAC EPOLAMINE 1.3% PATCH TOP SCH ×2 (09:49→20:52)
[2022-06-02] MEDS: HEPARIN SOD (PORCINE) 5000UNITS/ML 1ML VIAL/SYRINGE SQ SCH ×2 (09:49→20:52)
[2022-06-02] MEDS: LIDOCAINE 5% (LIDODERM) PATCH TD SCH (09:49)
[2022-06-02] MEDS: CEFDINIR 300 MG CAP (OMNICEF) PO SCH (09:50)
[2022-06-02] MEDS: ROSUVASTATIN 10 MG TAB (CRESTOR) PO SCH (09:50)
[2022-06-02] MEDS: ZINC SULFATE 220 MG CAP PO SCH (09:50)
[2022-06-02] MEDS: CLOPIDOGREL 75 MG TAB PO SCH (09:50)
[2022-06-02] MEDS: POTASSIUM CHLORIDE 10MEQ SR TABLET PO SCH (09:50)
[2022-06-02] MEDS: VORICONAZOLE 200MG TABLET (VFEND) PO SCH ×2 (09:50→20:54)
[2022-06-02] MEDS: LOPERAMIDE 2 MG CAPLET PO SCH ×2 (09:50→12:59)
[2022-06-02] MEDS: LACTOBACILLUS ACIDOPHILUS CAP (BACID) PO SCH ×2 (09:50→17:51)
[2022-06-02] MEDS: SUCRALFATE 1 GM TAB PO SCH ×4 (09:50→20:53)
[2022-06-02] MEDS: ASPIRIN 81MG ENTERIC TABLET PO SCH (09:50)
[2022-06-02] MEDS: ASCORBIC ACID 500 MG TAB PO SCH (09:50)
[2022-06-02] MEDS: ACETAMINOPHEN 650MG ER TAB (TYLENOL ARTHRITIS) PO SCH ×3 (09:51→20:53)
[2022-06-02] MEDS: CARVedilol 6.25 MG TAB PO SCH ×2 (09:51→20:53)
[2022-06-02] MEDS: SODIUM CHLORIDE NASAL 0.65% SPRAY BTL (OCEAN) SCH ×3 (09:51→20:55)
[2022-06-02] MEDS: TIMOLOL MALEATE 0.5% OPHTH SOLN 5 ML OU SCH ×2 (09:52→20:53)
[2022-06-02 14:00] VITALS: BP 149/65
[2022-06-02 20:00] VITALS: BP 148/65
[2022-06-03] MEDS: SODIUM CHLORIDE 0.9% INJ 10 ML SYR IV SCH (05:39)
[2022-06-03] MEDS: oxyCODONE 5MG TAB PO PRN (05:46)
[2022-06-03 06:00] VITALS: BP 139/64
[2022-06-03] MEDS: ASPIRIN 81MG ENTERIC TABLET PO SCH (07:43)
[2022-06-03] MEDS: CLOPIDOGREL 75 MG TAB PO SCH (07:44)
[2022-06-03] MEDS: SUCRALFATE 1 GM TAB PO SCH ×2 (07:44→12:25)
[2022-06-03] MEDS: LOPERAMIDE 2 MG CAPLET PO SCH ×2 (07:44→12:25)
[2022-06-03] MEDS: LACTOBACILLUS ACIDOPHILUS CAP (BACID) PO SCH (07:44)
[2022-06-03 07:45] VITALS: BP 139/64
[2022-06-03] MEDS: CEFDINIR 300 MG CAP (OMNICEF) PO SCH (07:45)
[2022-06-03] MEDS: ASCORBIC ACID 500 MG TAB PO SCH (07:45)
[2022-06-03] MEDS: ZINC SULFATE 220 MG CAP PO SCH (07:45)
[2022-06-03] MEDS: VORICONAZOLE 200MG TABLET (VFEND) PO SCH (07:45)
[2022-06-03] MEDS: ROSUVASTATIN 10 MG TAB (CRESTOR) PO SCH (07:45)
[2022-06-03] MEDS: CARVedilol 6.25 MG TAB PO SCH (07:46)
[2022-06-03] MEDS: ACETAMINOPHEN 650MG ER TAB (TYLENOL ARTHRITIS) PO SCH (07:46)
[2022-06-03] MEDS: POTASSIUM CHLORIDE 10MEQ SR TABLET PO SCH (07:46)
[2022-06-03] MEDS: HEPARIN SOD (PORCINE) 5000UNITS/ML 1ML VIAL/SYRINGE SQ SCH (07:47)
[2022-06-03] MEDS: LIDOCAINE 5% (LIDODERM) PATCH TD SCH (07:47)
[2022-06-03] MEDS: INSULIN LISPRO (NovoLOG) PER UNIT SC SCH ×2 (07:47→12:25)
[2022-06-03] MEDS: DICLOFENAC EPOLAMINE 1.3% PATCH TOP SCH (07:49)
[2022-06-03] MEDS: SODIUM CHLORIDE NASAL 0.65% SPRAY BTL (OCEAN) SCH (07:50)
[2022-06-03] MEDS: REMEDY PHYTOPLEX Z-GUARD PASTE 113GM TUBE (FROM STOREROOM PRODUCT) TOP SCH (07:50)
[2022-06-03] MEDS: TIMOLOL MALEATE 0.5% OPHTH SOLN 5 ML OU SCH (07:50)
[2022-06-03] MEDS ORDERED: SUCR1TA PO (09:24)
[2022-06-03] MEDS ORDERED: OXYC-517 PO (09:24)
[2022-06-03] MEDS ORDERED: INSUHUMDS SC (09:24)
[2022-06-03] MEDS ORDERED: ZINC220CA PO (09:24)
[2022-06-03] MEDS ORDERED: CLOP75TA2 PO (09:24)
[2022-06-03] MEDS ORDERED: POTA-136 PO (09:24)
[2022-06-03] MEDS ORDERED: LOPE2CA PO (09:24)
[2022-06-03] MEDS ORDERED: RISATAB3 PO (09:24)
[2022-06-03] MEDS ORDERED: ASCO50TA PO (09:24)
[2022-06-03] MEDS ORDERED: CEFD300CAP PO (09:39)
[2022-06-03] MEDS ORDERED: PROT1TAB2 PO (09:43)
[2022-06-03] MEDS ORDERED: BACITRACIN OINTMENT 30GM TUBE TOP PRN (11:40)
[2022-06-03 14:00] VITALS: BP 153/68
== END 2022-06-03 15:20 | DRG 299 ==
LOC: M PM&R 16:30
PROVIDERS: ADMIT Physical Medicine & Rehabilitation; ATTEND Physical Medicine & Rehabilitation
PROC: 30233N1 Transfusion of Nonautologous Red Blood Cells into Peripheral Vein, Percutaneous Approach (ICD-10-PCS; 2022-05-16)
PROC: 02HV33Z Insertion of Infusion Device into Superior Vena Cava, Percutaneous Approach (ICD-10-PCS; principal; 2022-05-19 15:30)
DX: E11.51 Type 2 diabetes mellitus with diabetic peripheral angiopathy without gangrene (principal); J98.51 Mediastinitis; N17.9 Acute kidney failure, unspecified; S42.254A Nondisplaced fracture of greater tuberosity of right humerus, initial encounter for closed fracture; S82.044A Nondisplaced comminuted fracture of right patella, initial encounter for closed fracture; E11.42 Type 2 diabetes mellitus with diabetic polyneuropathy; I11.0 Hypertensive heart disease with heart failure; R60.0 Localized edema; L97.529 Non-pressure chronic ulcer of other part of left foot with unspecified severity; I25.10 Atherosclerotic heart disease of native coronary artery without angina pectoris; I50.9 Heart failure, unspecified; E11.621 Type 2 diabetes mellitus with foot ulcer; Z95.1 Presence of aortocoronary bypass graft; H40.9 Unspecified glaucoma; Z89.411 Acquired absence of right great toe; Z74.09 Other reduced mobility; D50.9 Iron deficiency anemia, unspecified; Z74.1 Need for assistance with personal care; Z98.41 Cataract extraction status, right eye; Z98.42 Cataract extraction status, left eye; Z79.82 Long term (current) use of aspirin; Z88.1 Allergy status to other antibiotic agents; Z79.02 Long term (current) use of antithrombotics/antiplatelets; K59.03 Drug induced constipation; T36.95XA Adverse effect of unspecified systemic antibiotic, initial encounter; E87.6 Hypokalemia; Z79.84 Long term (current) use of oral hypoglycemic drugs; W18.30XA Fall on same level, unspecified, initial encounter; Y92.232 Corridor of hospital as the place of occurrence of the external cause; Y93.89 Activity, other specified; Y99.8 Other external cause status

== ENCOUNTER 2023-09-28 08:19 | Day surgery (SDC) | payer MEDICARE ==
[~2023-09-28] VITALS: Ht 154.9 cm; Wt 80.7 kg
[~2023-09-28 08:19] MED LIST changes: +ASCO50TA PO; +CEFD300CAP PO; +CLOP75TA2 PO; +DULA3PEN SQ; +GLIP2.5T6 PO; +INSUHUMDS SC; +LOPE2CA PO; +METO1TAB87 PO; +OXYC-517 PO; +POTA-136 PO; +PROT1TAB2 PO; +RISATAB3 PO; -ROSU40TA4 PO; +ROSU40TA81 PO; +SUCR1TA PO; +ZINC220CA PO
[2023-09-28] MEDS ORDERED: propofoL 200 MG/20 ML VIAL As Ordered ONE (09:01)
[2023-09-28] MEDS ORDERED: MIDAZOLAM INJ 2MG/2ML VIAL As Ordered ONE (09:01)
[2023-09-28] MEDS ORDERED: fentaNYL 100 MCG/2 ML INJECTION As Ordered ONE (09:02)
[2023-09-28] MEDS ORDERED: LIDOCAINE 2% 100MG/5ML SDV (FOR ANES.) As Ordered ONE (09:03)
[2023-09-28] MEDS ORDERED: ONDANSETRON 4MG 2ML VIAL As Ordered ONE (09:04)
[2023-09-28] MEDS: LR 1,000 ML IV SCH (09:11)
[2023-09-28] MEDS: ceFAZolin SOD 2 GM in IV 1 EA IV ONE (09:13)
[2023-09-28] MEDS ORDERED: ACETAMINOPHEN 1000MG 100ML IV BAG As Ordered ONE (09:36)
[2023-09-28] MEDS ORDERED: PHENYLephrine 500MCG 5ML (100MCG/ML) SYRINGE As Ordered ONE (09:37)
[2023-09-28] MEDS ORDERED: ePHEDrine SULFATE 25 MG/5 ML(5MG/ML) SYRINGE As Ordered ONE (09:37)
[2023-09-28] MEDS ORDERED: PYRI1TAB5 PO (10:02)
[2023-09-28] MEDS ORDERED: OXYB5TAB14 PO (10:02)
[2023-09-28] MEDS ORDERED: MACR100C43 PO (10:02)
[2023-09-28] MEDS ORDERED: HYDROMORPHONE HCL 0.5 MG/ 0.5 ML SYRINGE IV PRN (10:05)
[2023-09-28] MEDS ORDERED: fentaNYL 100 MCG/2 ML INJECTION IV PRN (10:05)
[2023-09-28] MEDS ORDERED: LR 1,000 ML IV SCH (10:05)
[2023-09-28] MEDS ORDERED: ONDANSETRON 4MG 2ML VIAL IV PRN (10:05)
[2023-09-28] MEDS ORDERED: oxyCODONE 5MG TAB PO PRN (10:05)
[2023-09-28 10:51] VITALS: BP 131/60; TEMP 97.8; O2SAT 96
== END 2023-09-28 11:26 | disposition home or self-care (01) ==
LOC: M SDC 08:19
PROVIDERS: ATTEND Urology
DX: N20.1 Calculus of ureter (principal); N32.9 Bladder disorder, unspecified; E11.9 Type 2 diabetes mellitus without complications; I25.10 Atherosclerotic heart disease of native coronary artery without angina pectoris; I10 Essential (primary) hypertension; N28.9 Disorder of kidney and ureter, unspecified; Z79.899 Other long term (current) drug therapy; Z79.82 Long term (current) use of aspirin; Z79.02 Long term (current) use of antithrombotics/antiplatelets; Z85.3 Personal history of malignant neoplasm of breast; Z92.3 Personal history of irradiation; Z95.1 Presence of aortocoronary bypass graft; Z88.1 Allergy status to other antibiotic agents
CPT/HCPCS: 52356; 76000; 82365; C1769; C2617; J0131; J0690; J1100; J2250; J2371; J2405; J3010